=== PATIENT | female | born 1970 | race African-American/Black ===

== ENCOUNTER 2016-12-31 15:14 | Inpatient (IN) | payer MEDICARE, OTHER ==
[~2016-12-31] VITALS: Ht 167.6 cm; Wt 63.5 kg
[~2016-12-31 15:14] MED LIST: ABILIFY30 MG ORAL; ALDACTONE50 MG ORAL; ASPIRIN BUFFER325 MG ORAL; ATIVAN1 MG ORAL; ATIVAN2 MG ORAL; ATORVASTATIN CA40 MG ORAL; AZITHROMYCIN250 MG ORAL; COREG3.125 MG ORAL; CYCLOBENZAPRINE10 MG ORAL; DEPAKOTE500 MG ORAL; DIGOXIN125 MCG ORAL; ENOXAPARIN60 MG/0.6 SUBQ; HYDROCODON-ACE1 EA15 ORAL; LASIX40 MG ORAL; LEVAQUIN500 MG ORAL; LEXAPRO10 MG ORAL; LISINOPRIL10 MG ORAL; LOVENOX10 M3 SUBQ; LYRICA50 MG ORAL; NITROSTAT0.4 M1 SL; NORCO 10/3251 EA ORAL; ROBITUSSIN-DM118 M1 PO; SYMBICORT 16010.2 G1 IH; TEMAZEPAM15 MG ORAL; VICODIN 5-5001 EACH PO; WARFARIN SODIUM1 MG PO; XARELTO10 MG ORAL; ZOFRAN4 MG ORAL; [UNRECOGNIZED DRUG - REMARK] PO; [UNRECOGNIZED DRUG - REMARK] PO
[2016-12-31] MEDS ORDERED: Naloxone 1mg/ml 2ml IVP ONE ×2 (15:45→18:15)
[2016-12-31] MEDS ORDERED: Naloxone 1mg/ml 2ml ONE (15:45)
[2016-12-31 16:30] VITALS: BP 122/100
--- NOTE | 2016-12-31 16:32 | Diagnostic Imaging Report ---
Indications: Chest pain Technique: Portable AP chest Findings: Comparison: 07/02/16 Cardiac silhouette has apparently increased in size. Pulmonary vascular redistribution has developed. No pulmonary infiltrate identified. No pleural abnormalities. Left chest wall pacemaker again noted. IMPRESSION: Findings described suspicious for developing/early congestive heart failure without obvious pulmonary edema
[2016-12-31 16:47] LABS: BASOPHILS % (AUTO) 1.6 % (0.0-2.0); EOSINOPHILS % (AUTO) 1.4 % (0.0-3.0); LYMPHOCYTES % (AUTO) 37.7 % (20.0-45.0); MEAN CORPUSCULAR HEMOGLOBIN 29.7 PG (27.0-31.0); MEAN CORPUSCULAR HGB CONC 33.2 G/DL (32.0-36.0); MEAN CORPUSCULAR VOLUME 89 FL (80-99); MEAN PLATELET VOLUME 8.3 FL (6.5-10.1); MONOCYTES % (AUTO) 7.6 % (1.0-10.0); NEUTROPHILS % (AUTO) 51.7 % (45.0-75.0); PLATELET COUNT 176 K/UL (150-450); RED BLOOD COUNT 4.01 M/UL (4.20-5.40); RED CELL DISTRIBUTION WIDTH 13.4 % (11.6-14.8)
[2016-12-31 17:08] LABS: TROPONIN I < 0.30 ng/mL (<=0.30)
[2016-12-31 17:19] LABS: ALANINE AMINOTRANSFERASE 23 U/L (3-33); ALBUMIN/GLOBULIN RATIO 1.3 (1.0-2.7); ANION GAP 12 (5-15); ASPARTATE AMINO TRANSFERASE 24 U/L (5-40); CARBON DIOXIDE 26 mEQ/L (20-30); CHLORIDE 104 mEQ/L (98-107); CREATININE 0.8 mg/dL (0.5-0.9); GLOMERULAR FILTRATION RATE > 60 mL/min (>60); HEMOLYSIS 39; POTASSIUM 3.7 mEQ/L (3.4-4.9); SODIUM 142 mEQ/L (135-145); TOTAL PROTEIN 6.2 g/dL (6.6-8.7)
[2016-12-31 17:25] LABS: ACETAMINOPHEN < 10 ug/mL (10-30); CKMB < 1.5 ng/mL (< 3.8)
--- NOTE | 2016-12-31 17:44 | Emergency Room Report ---
History of Present Illness General Chief Complaint: Chest Pain Source: Patient, EMS Present Illness HPI Patient is brought in by EMS. When I went to evaluate this patient, by the time I arrived the patient was sleeping and would only slightly withdrawal from painful stimuli. Per report, the patient had complained of chest pain. According to EMS, she had developed chest pain and patient's daughter called 911. En route she was given nitroglycerin with improvement in her chest pain. Per report, initially this patient was alert and able to give a history. However, shortly thereafter she became very sleepy and difficult to arouse. Later, the boyfriend came in states that the patient took some small little white pills for pain. He believes it was Lortab. There is no other history of present illness available. Allergies: Coded Allergies: AMOXICILLIN (Verified Allergy, Mild, SWELLING, 04/11/10) EGG (Verified Allergy, Mild, RASH, 06/08/10) PENICILLINS (Verified Allergy, Mild, RASH, 04/11/10) Patient History Past Medical History: see triage record, NH, CAD, CHF, other - Drug abuse and dependence Past Surgical History: pacemaker Last Menstrual Period: N/a Now: No Reviewed Nursing Documentation: PMH: Agreed, PSxH: Agreed Nursing Documentation-PMH Hx Cardiac Problems: Yes - AICD 2015, drug abuse Hx Hypertension: Yes Hx Pacemaker: Yes - 2015 Hx Asthma: No Hx COPD: Yes Hx Diabetes: No Hx Cancer: No Hx Gastrointestinal Problems: No Hx Dialysis: No Hx Neurological Problems: No Hx Cerebrovascular Accident: Yes - 2011 Hx Transient Ischemic Attacks: No Hx Dementia: No Hx Alzheimer's Disease: No Hx Parkinson's Disease: No Hx Meningitis: No Hx Encephalitis: No Hx Seizures: No Hx Epilepsy: No Hx Multiple Sclerosis: No Hx Cerebral Palsy: No Hx Amyotrophic Lat Sclerosis: No Hx Guillian-[place] Syndrome: No Hx Paralysis: No Hx Peripheral Neuropathy: No Hx Spinal Cord Injury: No Hx Head Trauma: No Hx Traumatic Brain Injury: No Hx Memory Loss: No Hx Concentration Difficulty: No Hx Speech Problem: No Hx Tremors: No Hx Vertigo: No Hx Dizziness: No Hx Syncope: No Hx Headaches: No Hx Aphasia: No Hx Dysphasia: No Hx Numbness: No Hx Weakness: No Hx Fatigue: No Hx Neurologic Surgery: No Hx Brain Shunt: No Review of Systems All Other Systems: limited Physical Exam Vital Signs Date Time Temp Pulse Resp B/P Pulse Ox O2 Delivery O2 Flow Rate FiO2 12/31/16 15:13 99.3 64 16 125/83 97 Room Air 12/31/16 15:42 2.0 Sp02 EP Interpretation: reviewed, normal General Appearance: no apparent distress, non-toxic, Stupor Head: normocephalic, atraumatic Eyes: bilateral eye normal inspection, bilateral eye other - Pinpoint pupils ENT: normal pharynx, no angioedema Neck: full range of motion, supple/symm/no masses Respiratory: chest non-tender, lungs clear, normal breath sounds, speaking full sentences Cardiovascular #1: regular rate, rhythm, no edema Gastrointestinal: normal bowel sounds, non tender, soft, non-distended, no guarding, no rebound Rectal: deferred Musculoskeletal: back normal, normal range of motion Neurologic: sensory intact, other - Sleeping, slightly withdrawals from pain. Skin: normal color, no rash, warm/dry, well hydrated Medical Decision Making Diagnostic Impression: Primary Impression: Chest pain Additional Impression: Medication overdose ER Course Initially, this patient only withdrew slightly from pain. She was given Narcan IV. There was an immediate response, however, the patient became alert and teary. The patient reports that she was having chest pain and leg pain and took some of her Lyrica to "go to sleep." She adamantly denies any other medications to include narcotics. She began asking for pain medications. She remained alert during her ED course. Patient denied suicidal intention, but did admit to taking a handful of Lyrica because she is in pain and depressed. Poison control was contacted and this only require supportive care. Patient's cardiac workup is initially negative. However, the patient is high-risk for acute coronary syndrome. She will be admitted for chest pain and rule out acute coronary syndrome. She will also need an evaluation by psychiatry. She is admitted to telemetry for further evaluation and treatment. Labs Test 12/31/16 15:40 White Blood Count 6.0 K/UL (4.8-10.8) Red Blood Count 4.01 M/UL (4.20-5.40) Hemoglobin 11.9 G/DL (12.0-16.0) Hematocrit 35.9 % (37.0-47.0) Mean Corpuscular Volume 89 FL (80-99) Mean Corpuscular Hemoglobin 29.7 PG (27.0-31.0) Mean Corpuscular Hemoglobin Concent 33.2 G/DL (32.0-36.0) Red Cell Distribution Width 13.4 % (11.6-14.8) Platelet Count 176 K/UL (150-450) Mean Platelet Volume 8.3 FL (6.5-10.1) Neutrophils (%) (Auto) 51.7 % (45.0-75.0) Lymphocytes (%) (Auto) 37.7 % (20.0-45.0) Monocytes (%) (Auto) 7.6 % (1.0-10.0) Eosinophils (%) (Auto) 1.4 % (0.0-3.0) Basophils (%) (Auto) 1.6 % (0.0-2.0) Sodium Level 142 mEQ/L (135-145) Potassium Level 3.7 mEQ/L (3.4-4.9) Chloride Level 104 mEQ/L (98-107) Carbon Dioxide Level 26 mEQ/L (20-30) Anion Gap 12 (5-15) Blood Urea Nitrogen 9 mg/dL (7-23) Creatinine 0.8 mg/dL (0.5-0.9) Estimat Glomerular Filtration Rate > 60 mL/min (>60) Glucose Level 89 mg/dL (74-106) Calcium Level 9.0 mg/dL (8.6-10.2) Total Bilirubin 0.8 mg/dL (0.0-1.2) Aspartate Amino Transf (AST/SGOT) 24 U/L (5-40) Alanine Aminotransferase (ALT/SGPT) 23 U/L (3-33) Alkaline Phosphatase 87 U/L (35-104) Total Creatine Kinase 130 U/L (26-140) Creatine Kinase MB < 1.5 ng/mL (< 3.8) Creatine Kinase MB Relative Index Troponin I < 0.30 ng/mL (<=0.30) Total Protein 6.2 g/dL (6.6-8.7) Albumin 3.6 g/dL (3.5-5.2) Globulin 2.6 g/dL Albumin/Globulin Ratio 1.3 (1.0-2.7) Salicylates Level < 10 mg/dL (10-30) Acetaminophen Level < 10 ug/mL (10-30) Serum Alcohol < 10 mg/dL EKG Diagnostic Results Rate: normal Rhythm: other ST Segments: no acute changes Other Impression AV paced Rhythm Strip Diag. Results EP Interpretation: yes Rate: 60 Rhythm: no PVC's, no ectopy Other Impression Paced Chest X-Ray Diagnostic Results EP Interpretation: Yes Findings: no consolidation, no effusion, no pneumothorax Number of Views: 1 Other Impression Cardiomegaly. Last Vital Signs Date Time Temp Pulse Resp B/P Pulse Ox O2 Delivery O2 Flow Rate FiO2 12/31/16 15:42 98 Nasal Cannula 2.0 12/31/16 15:30 12 12/31/16 15:13 99.3 64 125/83 Disposition: ADMITTED INPATIENT Condition: Serious Referrals: NOT CHOSEN JUAN/,REFERRING (PCP) TRACY BYRNE D.O. December 31, 2016 17:44
[2016-12-31] MEDS ORDERED: Ammonia Inhalant 0.33mL 1 Amp INH ONE (18:08)
[2016-12-31 18:30] VITALS: BP 106/67
[2016-12-31] MEDS ORDERED: Enalaprilat 2.5mg/2ml Inj IV PRN (18:30)
[2016-12-31] MEDS ORDERED: Diltiazem 25mg/5ml IV PRN (18:30)
[2016-12-31] MEDS ORDERED: Ketorolac 30mg Inj IV PRN (18:30)
[2016-12-31] MEDS ORDERED: Nitroglycerin Subl 0.4mg tab (Bottle Of 25) SL PRN (18:30)
[2016-12-31] MEDS ORDERED: Cyclobenzaprine 10mg Tab ORAL PRN (18:30)
[2016-12-31] MEDS ORDERED: Miralax 17gm pkt ORAL PRN (18:30)
[2016-12-31] MEDS ORDERED: DuoNeb 0.5-3(2.5)mg/3ml neb HHN PRN (18:30)
[2016-12-31] MEDS ORDERED: Norco 5mg/325mg tab ORAL PRN (18:30)
[2016-12-31 19:30] VITALS: BP 114/75
[2016-12-31 19:31] VITALS: BP 106/67
[2016-12-31 20:00] VITALS: BP 132/84
[2016-12-31] MEDS ORDERED: Xarelto 10mg tab ORAL SCH (20:00)
[2016-12-31] MEDS ORDERED: Depakote ER 500mg tab ORAL SCH (21:00)
[2017-01-01] VITALS: BP 102/65
[2017-01-01 04:00] VITALS: BP 108/81
[2017-01-01 08:00] VITALS: BP 113/72
[2017-01-01 08:13] LABS: MEAN CORPUSCULAR HEMOGLOBIN 28.2 PG (27.0-31.0); MEAN CORPUSCULAR HGB CONC 31.9 G/DL (32.0-36.0); MEAN CORPUSCULAR VOLUME 88 FL (80-99); PLATELET COUNT 202 K/UL (150-450); RED BLOOD COUNT 4.36 M/UL (4.20-5.40); RED CELL DISTRIBUTION WIDTH 13.7 % (11.6-14.8); WHITE BLOOD COUNT 5.1 K/UL (4.8-10.8)
[2017-01-01 08:29] LABS: INR 1.2 (0.9-1.1); PROTHROMBIN TIME 12.7 SEC (9.30-11.50)
[2017-01-01 08:56] LABS: TROPONIN I < 0.30 ng/mL (<=0.30)
[2017-01-01] MEDS ORDERED: Lyrica 50mg cap ORAL SCH (09:00)
[2017-01-01] MEDS ORDERED: Spironolactone 25mg tab ORAL SCH (09:00)
[2017-01-01] MEDS ORDERED: Lisinopril 2.5mg tab ORAL SCH (09:00)
[2017-01-01] MEDS ORDERED: Aspirin Baby 81mg ORAL SCH (09:00)
[2017-01-01 09:02] LABS: CHOLESTEROL 138 mg/dL (< 200); CHOLESTEROL/HDL RATIO 2.6 (3.3-4.4); CRP QUANT < 0.3 mg/dL (< 0.5); HEMOLYSIS 6; LDL CHOLESTEROL (CALC.) 75 mg/dL (60-99)
[2017-01-01 09:04] LABS: THYROID STIMULATING HORMONE 0.258 uIU/mL (0.300-4.500)
[2017-01-01 09:20] LABS: ANION GAP 14 (5-15); CARBON DIOXIDE 26 mEQ/L (20-30); CHLORIDE 105 mEQ/L (98-107); CREATININE 0.9 mg/dL (0.5-0.9); GLOMERULAR FILTRATION RATE > 60 mL/min (>60); HEMOLYSIS 5; POTASSIUM 4.1 mEQ/L (3.4-4.9); SODIUM 145 mEQ/L (135-145)
[2017-01-01 10:10] LABS: BASOPHILS % (MANUAL) 1 % (0-2); EOSINOPHILS % (MANUAL) 3 % (0-3); LYMPHOCYTES % (MANUAL) 57 % (20-45); NEUTROPHILS % (MANUAL) 33 % (45-75); TOTAL CELLS COUNTED 100
[2017-01-01 10:11] LABS: BAND NEUTROPHILS % (MANUAL) 0 % (0-8); PLATELET ESTIMATE ADEQUATE; PLATELET MORPHOLOGY NORMAL
[2017-01-01 12:00] VITALS: BP 100/57
--- NOTE | 2017-01-01 22:30 | Consultation ---
History of Present Illness General Date patient seen: January 01, 2017 Chief Complaint: Chest Pain Referring physician: Dr. Morrison Reason for Consultation: chest pain Present Illness Allergies: Coded Allergies: AMOXICILLIN (Verified Allergy, Mild, SWELLING, 04/11/10) EGG (Verified Allergy, Mild, RASH, 06/08/10) PENICILLINS (Verified Allergy, Mild, RASH, 04/11/10) Medication History Scheduled Aripiprazole* (Abilify*), 30 MG ORAL QHS, (Reported) Carvedilol (Coreg), 3.125 MG ORAL Q12H, (Reported) Digoxin* (Digoxin*), 250 MCG ORAL DAILY, (Reported) Divalproex Sodium (Depakote), 1,000 MG ORAL BEDTIME, (Reported) Escitalopram Oxalate* (Lexapro*), 10 MG ORAL DAILY, (Reported) Hydrocodone/Acetaminophen (Hydrocodon-Acetaminophn 10-325), 1 TAB ORAL Q6H Lisinopril* (Lisinopril*), 5 MG ORAL DAILY, (Reported) Lorazepam* (Ativan*), 1 MG ORAL BEDTIME, (Reported) Pregabalin (Lyrica), 100 MG ORAL DAILY, (Reported) Rivaroxaban (Xarelto*), 20 MG ORAL DAILY, (Reported) Spironolactone (Aldactone), 25 MG ORAL DAILY Scheduled PRN Cyclobenzaprine Hcl* (Flexeril*), 10 MG ORAL TIDPRN PRN for Muscle Spasm Hydrocodone/Acetaminophen 5-325* (Hydrocodone/Acetaminophen 5-325*), 1 TAB ORAL Q6H PRN for For Pain Nitroglycerin (Nitrostat), 0.4 MG SL Q5M X3 DOSES PRN for Per rx protocol, ( Reported) Temazepam (Temazepam*), 15 MG ORAL BEDTIME PRN for Per rx protocol, (Reported) Miscellaneous Medications Budesonide/Formoterol Fumarate (Symbicort 160-4.5 Mcg Inhaler), 1 PUFF IH, ( Reported) Patient History Healthcare decision maker Resuscitation status Full Code Advanced Directive on File Physical Exam Last 24 Hour Vital Signs Date Time Temp Pulse Resp B/P Pulse Ox O2 Delivery O2 Flow Rate FiO2 01/01/17 12:00 74 01/01/17 12:00 67 18 100/57 97 Room Air 01/01/17 08:41 113/72 01/01/17 08:41 64 01/01/17 08:40 64 113/72 01/01/17 08:00 64 01/01/17 08:00 57 18 113/72 100 Room Air 01/01/17 04:00 97.0 64 18 108/81 98 Nasal Cannula 2.0 01/01/17 04:00 71 01/01/17 00:00 67 01/01/17 00:00 97.7 65 16 102/65 99 Nasal Cannula 2.0 Intake and Output 12/31/16 01/01/17 19:00 07:00 Intake Total 600 ml Output Total 0 ml Balance 600 ml Intake Oral 600 ml Output Urine Total 0 ml # Voids 1 Laboratory Tests Test 01/01/17 00:36 01/01/17 07:10 Urine HCG, Qualitative Negative Urine Opiates Screen Negative (NEGATIVE) Urine Barbiturates Screen Negative (NEGATIVE) Phencyclidine (PCP) Screen Negative (NEGATIVE) Urine Amphetamines Screen Negative (NEGATIVE) Urine Benzodiazepines Screen Negative (NEGATIVE) Urine Cocaine Screen Positive (NEGATIVE) H Urine Marijuana (THC) Screen Positive (NEGATIVE) H White Blood Count 5.1 K/UL (4.8-10.8) Red Blood Count 4.36 M/UL (4.20-5.40) Hemoglobin 12.3 G/DL (12.0-16.0) Hematocrit 38.6 % (37.0-47.0) Mean Corpuscular Volume 88 FL (80-99) Mean Corpuscular Hemoglobin 28.2 PG (27.0-31.0) Mean Corpuscular Hemoglobin Concent 31.9 G/DL (32.0-36.0) L Red Cell Distribution Width 13.7 % (11.6-14.8) Platelet Count 202 K/UL (150-450) Mean Platelet Volume 9.0 FL (6.5-10.1) Neutrophils (%) (Auto) % (45.0-75.0) Lymphocytes (%) (Auto) % (20.0-45.0) Monocytes (%) (Auto) % (1.0-10.0) Eosinophils (%) (Auto) % (0.0-3.0) Basophils (%) (Auto) % (0.0-2.0) Differential Total Cells Counted 100 Neutrophils % (Manual) 33 % (45-75) L Lymphocytes % (Manual) 57 % (20-45) H Monocytes % (Manual) 6 % (1-10) Eosinophils % (Manual) 3 % (0-3) Basophils % (Manual) 1 % (0-2) Band Neutrophils 0 % (0-8) Platelet Estimate Adequate Platelet Morphology Normal Red Blood Cell Morphology Normal Prothrombin Time 12.7 SEC (9.30-11.50) H Prothromb Time International Ratio 1.2 (0.9-1.1) H Activated Partial Thromboplast Time 30 SEC (23-33) Sodium Level 145 mEQ/L (135-145) Potassium Level 4.1 mEQ/L (3.4-4.9) Chloride Level 105 mEQ/L (98-107) Carbon Dioxide Level 26 mEQ/L (20-30) Anion Gap 14 (5-15) Blood Urea Nitrogen 10 mg/dL (7-23) Creatinine 0.9 mg/dL (0.5-0.9) Estimat Glomerular Filtration Rate > 60 mL/min (>60) Glucose Level 88 mg/dL (74-106) Calcium Level 9.0 mg/dL (8.6-10.2) Troponin I < 0.30 ng/mL (<=0.30) C-Reactive Protein, Quantitative < 0.3 mg/dL (< 0.5) Triglycerides Level 48 mg/dL (< 150) Cholesterol Level 138 mg/dL (< 200) LDL Cholesterol 75 mg/dL (60-99) HDL Cholesterol 53 mg/dL (> 60) Cholesterol/HDL Ratio 2.6 (3.3-4.4) L Thyroid Stimulating Hormone (TSH) 0.258 uIU/mL (0.300-4.500) Height (Feet): 5 Height (Inches): 6.00 Weight (Pounds): 140 Assessment/Plan Problem List: (1) ACS (acute coronary syndrome) ICD Codes: I20.0 - Unstable angina SNOMED: 765210694 (2) AICD (automatic cardioverter/defibrillator) present ICD Codes: Z95.810 - Presence of automatic (implantable) cardiac defibrillator SNOMED: 63919248, 813803100 (3) Cardiomyopathy ICD Codes: I42.9 - Cardiomyopathy SNOMED: 33756699 (4) Bipolar depression ICD Codes: F31.30 - Bipolar depression SNOMED: 70590092 CHRISTIANA TERESA January 01, 2017 22:30
--- NOTE | 2017-01-01 23:09 | History and Physical Report ---
DATE OF ADMISSION: 12/31/2016 CHIEF COMPLAINT: The patient is a 46-year-old female who presents with a chief complaint of chest pain and overdose of Lyrica. HISTORY OF PRESENT ILLNESS: The patient has a history of cardiomyopathy and atrial fibrillation. The patient is status post AICD placement. The patient states she took an unknown number of Lyrica tablets yesterday, 12/30/2016. The patient states she took Lyrica for muscle spasms. The patient was transported to [facility]. The patient was admitted for chest pain to rule out acute coronary syndrome. REVIEW OF SYSTEMS: Constitutional: The patient denies weight loss or weight gain. The patient denies fevers or chills. HEENT: The patient denies ear or throat pain. Cardiovascular: The patient complains of chest pain. The patient denies palpitations. The patient denies wheeze or shortness of breath. Abdomen: The patient denies nausea, vomiting, diarrhea, or constipation. Genitourinary: The patient denies dysuria or increased frequency of urination. Neuromuscular: The patient denies seizures or generalized weakness. PAST MEDICAL HISTORY: Significant for: 1. Congestive heart failure. 2. Atrial fibrillation. 3. Cardiomyopathy. 4. Bipolar depression. 5. Hypothyroidism. 6. Hypertension. 7. Anxiety. 8. Major depression. PAST SURGICAL HISTORY: Significant for AICD placement x3, last placement was in November [address] Ojeda. CURRENT MEDICATIONS: The patient states she ran out of her medications five months ago. It is unknown where the patient got the Lyrica from. ALLERGIES: Penicillin. SOCIAL HISTORY: The patient is single, however lives with her adult daughter. The patient has a history of tobacco use of one-quarter pack per day. The patient admits to occasional alcohol use. The patient is disabled the patient denies other drugs of abuse. PHYSICAL EXAMINATION: VITAL SIGNS: Temperature 97, respirations 18, pulse 64 to 71, blood pressure 108/81. GENERAL: The patient is a thin-appearing female who is agitated. HEENT: Pupils are equal and responsive to light and accommodation. Extraocular muscles are intact. NECK: Supple without lymphadenopathy. CHEST: Lungs are clear to auscultation bilaterally without wheezes or rales. CARDIOVASCULAR: Regular rate. S1 and S2 are normal without murmurs, rubs, or gallops. ABDOMEN: Soft, nontender, and nondistended. Positive bowel sounds. No evidence of hepatosplenomegaly. Currently no rebound or guarding. EXTREMITIES: Negative for clubbing, cyanosis, or edema. RECTAL/GENITAL: Refused. NEUROLOGIC: Cranial nerves II through XII are grossly intact without focal deficits. Motor strength is 5/5 bilaterally. Deep tendon reflexes are 2+ . LABORATORY STUDIES: WBC 6, hemoglobin 11.9, hematocrit 35.9, and platelets 176,000. Sodium 143, potassium 3.7, chloride 104, CO2 26, BUN 9, creatinine 0.8, and glucose 89. Troponin is less than 0.3. TSH is 0.26. EKG demonstrates ventricular paced rhythm with occasional PVCs at approximately 60 beats per minute. ASSESSMENT: This is a 46-year-old female with: 1. Chest pain. 2. Atrial fibrillation. 3. Congestive heart failure. 4. Cardiomyopathy. 5. Bipolar depression. 6. Hypothyroidism. 7. Hypertension. 8. Anxiety. 9. Depression. TREATMENT: 1. Chest pain/congestive heart failure/atrial fibrillation/cardiomyopathy. Cardiology consultation with Dr. Ulysses Ojeda. Chest pain may be secondary to acute myocardial syndrome. We will follow recommendations of Cardiology. An echocardiogram is pending. Serial troponin levels will be run. 2. Bipolar depression. 3. Hypothyroidism. The patient is currently hyperthyroid. A thyroid panel is pending. 4. Hypertension. The patient is currently normotensive off medications. 5. Anxiety. 6. Depression. 7. AICD in situ. Aron Pope M.D. DR: YASMEEN JOB#: [id number] CC:
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
--- NOTE | 2017-01-02 19:29 | Cardiology Report ---
APPROVED REPORT EXAM: Two-dimensional and M-mode echocardiogram with Doppler and color Doppler. INDICATION Left ventricular function M-Mode DIMENSIONS IVSd1.0 (0.7-1.1cm)Left Atrium (MM)3.7 (1.6-4.0cm) LVDd6.3 (3.5-5.6cm)Aortic Root3.3 (2.0-3.7cm) PWd1.0 (0.7-1.1cm)Aortic Cusp Exc.2.1 (1.5-2.0cm) LVDs5.2 (2.5-4.0cm) PWs1.3 cm Mild left ventricular enlargement. Global left ventricular hypokinesis. Left ventricular ejection fraction estimated to be 20-25%. No evidence of left ventricular hypertrophy. No evidence of pericardial fat or effusion. Right cardiac chamber sizes are within normal limits. Mild left atrial enlargement by 2D. Focal aortic valve sclerosis with adequate cusp excursion Thickened mitral valve leaflets with normal excursion. Mitral annulus and aortic root calcification. Pulmonic valve not well visualized. Normal tricuspid valve structure. IVC is normal in size with minimal physiological collapse. Probable pacemaker wire present in the right side chambers. RA pressure of 10mmHg. Echo density in the apical region, cannot rule out apical thrombus. A color flow and spectral Doppler study was performed and revealed: No aortic regurgitation. Trace mitral regurgitation. Left ventricular diastolic dysfunction grade 1. Trace tricuspid regurgitation. Tricuspid systolic velocities suggests peak right ventricular systolic pressure of 15 mmHg Pulmonic regurgitation present.
--- NOTE | 2017-01-03 14:08 | Discharge Summary ---
Discharge Summary Hospital Course Date of Admission December 31, 2016 at 16:15 Date of Discharge January 01, 2017 at 16:09 Admitting Diagnosis CHEST PAIN, benzodiazepine OD. MARTA Judd is a 46 year old female who was admitted on December 31, 2016 at 16: 15 for Chest Pain,Benzo Overdose Hospital Course dc summary #[id number] Discharge Condition Upon Discharge: stable Discharge Disposition Patient signed AMA Discharge Diagnoses: Discharge Instructions Discharge Instructions Special Instructions I have been assigned to complete a D/C Summary on this account. I was not involved in the patient management Saray Schulte NP ([place]te[place]) January 03, 2017 14:08
--- NOTE | 2017-01-04 06:30 | Discharge Summary 2 SIG ---
DATE OF ADMISSION: 12/31/2016 DATE OF DISCHARGE: 01/01/2017 Date of signing against medical advice is 01/01/2017. The patient is admitted under Dr. Morrison. REASON FOR ADMISSION: The patient is a 46-year-old female, presented to emergency room with complaint of chest pain. Initially, the patient complained of chest pain and her daughter called paramedics. In route, the patient was given nitroglycerin with improvement in chest pain. At that time, the patient was alert and able to give information. Shortly thereafter, she became very sleepy and difficult to arouse. An emergency department doctor was unable to wake up the patient. She was only slightly withdrawing from painful stimuli. Narcan was given. The boyfriend stated that the patient might have taken some little white pill for pain, he believes it was . The patient is with multiple chronic medical problems including hypertension, automatic implanted cardioverter defibrillator, and cardiomyopathy. The patient immediately responded to Narcan and became alert and teary. She reported she had a chest pain and leg pain and took a bunch of Lyrica to go to sleep. She adamantly denied any other medication to include narcotic. She started to ask for pain medication. She remained alert during the ED course. The patient denies suicidal ideation. Poison Control was contracted for overdose on Lyrica and that only required supportive care. The patient's initial cardiac workup was negative. Troponin was negative. Chest x-ray was negative. EKG revealed AV paced rhythm in 60s. No ectopy. No premature ventricular contraction. The patient was at high risk for acute coronary syndrome and admitted for further management. The patient also needs evaluation by psychiatrist. The patient was admitted to telemetry floor. ADMITTING DIAGNOSES: Includes, 1. Chest pain, rule out acute coronary syndrome. 2. Medication overdose. 3. Cardiomyopathy. 4. Automatic implanted cardioverter defibrillator. HOSPITAL COURSE: The patient was admitted. Troponin x2 were negative. Echocardiogram revealed ejection fraction of 20% to 25% and right ventricular systolic pressure of 15 with a global left ventricular hypokinesis. The patient was continued on home medication treatment with beta-thais, CHELSEA inhibitor, digoxin, and Aldactone. Chest x-ray revealed early congestive heart failure, but no pulmonary edema. EKG shows AV paced rhythm at 60. The patient has a history of atrial fibrillation and PE. The patient was on anticoagulation with Xarelto. Lipid panel checked and was stable. Noted low TSH. It is unclear if the patient has any history of hyper or hypothyroidism since none of her home medication have that. Full thyroid panel was ordered. Urine tox screen was positive for marijuana and cocaine. The patient was counseled on abstinence from cocaine. Later on 01/01/2017, the patient decided to sign against medical advice. The risks and consequences about signing against medical advice were discussed with the patient by the nursing staff. 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 Psychiatrist seen the patient and diagnosed her with major depressive disorder and optimized her medication regimen. The patient signed the form and left against medical advice. FINAL DIAGNOSES: Includes, 1. Chest pain, acute coronary syndrome was likely ruled out. 2. Medication overdose. 3. Cocaine abuse. 4. Automatic implanted cardioverter defibrillator. 5. Cardiomyopathy. 6. Hypertension. 7. Low thyroid stimulating hormone. 8. Major depressive disorder. Saurav Morrison M.D. I have been assigned to dictate discharge summary on this account and I was not involved in the patient's management. Saray Turnereastern niagara hospital, [place] divisionDanita N.PHaleigh DR: EKATERINA JOB#: [id number] CC:
== END 2017-01-01 16:09 | disposition left against medical advice (07) | DRG 313 ==
LOC: EDBD 15:14 → EDSEX 15:14 → EMR 15:45 → EDBEDREQ 16:07 → EDBEDREQSVC 16:07 → 2E 16:15 → EDBEDREQ 16:34 → 2E 01-01 12:51
DX: R07.9 Chest pain, unspecified (principal); I42.9 Cardiomyopathy, unspecified; T42.6X1A Poisoning by other antiepileptic and sedative-hypnotic drugs, accidental (unintentional), initial encounter; Y92.019 Unspecified place in single-family (private) house as the place of occurrence of the external cause; M79.606 Pain in leg, unspecified; Z91.19 Patient's noncompliance with other medical treatment and regimen; F32.9 Major depressive disorder, single episode, unspecified; Z95.810 Presence of automatic (implantable) cardiac defibrillator; I10 Essential (primary) hypertension; Z86.711 Personal history of pulmonary embolism; Z79.01 Long term (current) use of anticoagulants; F14.10 Cocaine abuse, uncomplicated; F12.10 Cannabis abuse, uncomplicated
CPT/HCPCS: 36415; 71010; 80048; 80053; 80061; 80300; 80329; 81025; 82550; 82553; 84443; 84484; 85007; 85025; 85610; 85730; 86140; 93005; 93306; J2310

== ENCOUNTER 2017-01-13 12:09 | Inpatient (IN) | payer MEDICARE, OTHER ==
[~2017-01-13] VITALS: Ht 170.2 cm; Wt 62.6 kg
[2017-01-13] MEDS: Albuterol ud Inhalation HHN SCH ×2 (12:45→12:46)
[2017-01-13] MEDS: Ipratropium 0.02% Inh Soln 2.5ml UD HHN SCH ×2 (12:45→12:46)
[2017-01-13 13:02] LABS: BASOPHILS % (AUTO) 1.4 % (0.0-2.0); EOSINOPHILS % (AUTO) 1.8 % (0.0-3.0); LYMPHOCYTES % (AUTO) 34.7 % (20.0-45.0); MEAN CORPUSCULAR HEMOGLOBIN 27.5 PG (27.0-31.0); MEAN CORPUSCULAR HGB CONC 31.3 G/DL (32.0-36.0); MEAN CORPUSCULAR VOLUME 88 FL (80-99); MEAN PLATELET VOLUME 9.9 FL (6.5-10.1); MONOCYTES % (AUTO) 5.2 % (1.0-10.0); NEUTROPHILS % (AUTO) 56.8 % (45.0-75.0); PLATELET COUNT 195 K/UL (150-450); RED BLOOD COUNT 4.78 M/UL (4.20-5.40); RED CELL DISTRIBUTION WIDTH 13.2 % (11.6-14.8); WHITE BLOOD COUNT 7.9 K/UL (4.8-10.8)
[2017-01-13 13:14] LABS: PROTHROMBIN TIME 10.4 SEC (9.30-11.50)
[2017-01-13 13:21] LABS: ALANINE AMINOTRANSFERASE 20 U/L (3-33); ALBUMIN/GLOBULIN RATIO 1.5 (1.0-2.7); ANION GAP 13 (5-15); ASPARTATE AMINO TRANSFERASE 18 U/L (5-40); CALCIUM 9.2 mg/dL (8.6-10.2); CARBON DIOXIDE 25 mEQ/L (20-30); CHLORIDE 102 mEQ/L (98-107); CREATININE 0.8 mg/dL (0.5-0.9); GLOMERULAR FILTRATION RATE > 60 mL/min (>60); HEMOLYSIS 11; POTASSIUM 4.1 mEQ/L (3.4-4.9); SODIUM 140 mEQ/L (135-145); TOTAL PROTEIN 6.3 g/dL (6.6-8.7)
[2017-01-13 13:22] LABS: TROPONIN I < 0.30 ng/mL (<=0.30)
[2017-01-13 13:31] LABS: CKMB < 1.5 ng/mL (< 3.8)
[2017-01-13 13:46] VITALS: BP 114/78
[2017-01-13] MEDS ORDERED: Norco 5mg/325mg tab ORAL ONE (14:15)
--- NOTE | 2017-01-13 14:29 | Emergency Room Report ---
History of Present Illness General Chief Complaint: Chest Pain Source: Patient Present Illness HPI 46-year-old female presents ED complaining of chest pain and shortness of breath since last night. Patient has history of hypertension and CHF. Has pacemaker. Patient describes pain as sharp, midsternal, 10 out of 10, nonradiating. Also notes chest tightness. This history of asthma. States that her bathroom is being refinished and the fumes triggered her asthma symptoms. Denies fevers or chills. Denies cough. Denies nausea or vomiting. No other aggravating or relieving factors. Denies any other associated symptoms Allergies: Coded Allergies: AMOXICILLIN (Verified Allergy, Mild, SWELLING, 04/11/10) EGG (Verified Allergy, Mild, RASH, 06/08/10) PENICILLINS (Verified Allergy, Mild, RASH, 04/11/10) Patient History Past Medical History: HTN, CHF, CVA/TIA Past Surgical History: pacemaker Pertinent Family History: none Social History: Denies: alcohol use, drug use, smoking Now: No Immunizations: UTD Reviewed Nursing Documentation: PMH: Agreed, PSxH: Agreed Nursing Documentation-PMH Hx Cardiac Problems: Yes Hx Hypertension: Yes Hx Pacemaker: Yes - 2015 LEFT Hx Asthma: No Hx COPD: Yes Hx Diabetes: No Hx Cancer: No Hx Gastrointestinal Problems: No Hx Dialysis: No Hx Neurological Problems: No Hx Cerebrovascular Accident: Yes - 2011 Hx Transient Ischemic Attacks: Yes Hx Dementia: No Hx Alzheimer's Disease: No Hx Parkinson's Disease: No Hx Meningitis: No Hx Encephalitis: No Hx Seizures: No Hx Epilepsy: No Hx Multiple Sclerosis: No Hx Cerebral Palsy: No Hx Amyotrophic Lat Sclerosis: No Hx Guillian-Warren Syndrome: No Hx Paralysis: Yes Hx Peripheral Neuropathy: No Hx Spinal Cord Injury: No Hx Head Trauma: No Hx Traumatic Brain Injury: No Hx Memory Loss: No Hx Concentration Difficulty: No Hx Speech Problem: No Hx Tremors: No Hx Vertigo: No Hx Dizziness: No Hx Syncope: No Hx Headaches: Yes - Migraines Hx Aphasia: No Hx Dysphasia: No Hx Numbness: No Hx Weakness: No Hx Fatigue: No Hx Neurologic Surgery: No Hx Brain Shunt: No Review of Systems All Other Systems: negative except mentioned in HPI Physical Exam Vital Signs Date Time Temp Pulse Resp B/P Pulse Ox O2 Delivery O2 Flow Rate FiO2 01/13/17 12:14 97.5 68 20 150/88 100 Room Air 01/13/17 12:46 21 Sp02 EP Interpretation: reviewed, normal General Appearance: no apparent distress, alert, GCS 15, non-toxic Head: normocephalic, atraumatic Eyes: bilateral eye PERRL, bilateral eye normal inspection ENT: hearing grossly normal, normal pharynx, no angioedema, normal voice Neck: full range of motion, supple/symm/no masses Respiratory: chest non-tender, decreased breath sounds, speaking full sentences , wheezing Cardiovascular #1: regular rate, rhythm, no edema Cardiovascular #2: 2+ carotid (R), 2+ carotid (L), 2+ radial (R), 2+ radial (L) , 2+ dorsalis pedis (R), 2+ dorsalis pedis (L) Gastrointestinal: normal bowel sounds, non tender, soft, non-distended, no guarding, no rebound Rectal: deferred Genitourinary: normal inspection, no CVA tenderness Musculoskeletal: back normal, gait/station normal, normal range of motion, non- tender Neurologic: alert, oriented x3, responsive, motor strength/tone normal, sensory intact, speech normal Psychiatric: judgement/insight normal, memory normal, mood/affect normal, no suicidal/homicidal ideation Reflexes: 3+ bicep (R), 3+ bicep (L), 3+ tricep (R), 3+ tricep (L), 3+ knee (R) , 3+ knee (L) Skin: normal color, no rash, warm/dry, well hydrated Lymphatic: no adenopathy Medical Decision Making Diagnostic Impression: Primary Impression: ACS (acute coronary syndrome) Additional Impressions: opiate dependance Congestive heart failure (CHF) Qualified Codes: I50.9 - Heart failure, unspecified Asthma exacerbation ER Course Hospital Course 46-year-old female presents ED complaining of chest pain, shortness of breath Differential diagnoses include: OR/unstable angina, contusion, muscle strain, PTX, rib fracture Clinical course Patient placed on stretcher. on hose handler. After initial history and physical I ordered labs, EKG, chest x-ray, nebulizer treatments labs reviewed- no leukocytosis, hb/hct stable, electrolytes ok, trop negative, BNP 1500 EKG - pacemaker rhythm, PVCs, no ischemic changes Chest x-ray- cardiomegaly. pacemaker Breathing has improved after breathing treatments. However patient continues to have chest pain. Patient has significant history for opioid dependence. However given patient's significant cardiac history I believe she will require admission. Given [place] in ED. given aspirin Case discussed with Dr. Morrison and he agreed to accept the patient to his service for further care and support I. I feel this is a highly complex case requiring extensive working including EKG/Rhythm strip, Xray/CT/US, Blood/urine lab work, repeat exams while in ED, and administration of strong opiates/narcotics for pain control, admission to hospital or close patient follow up. Diagnosis - ACS, opiate dependence, CHF, asthma exacebration admitted to telemetry in serious condition Labs Test 01/13/17 12:35 White Blood Count 7.9 K/UL (4.8-10.8) Red Blood Count 4.78 M/UL (4.20-5.40) Hemoglobin 13.2 G/DL (12.0-16.0) Hematocrit 42.0 % (37.0-47.0) Mean Corpuscular Volume 88 FL (80-99) Mean Corpuscular Hemoglobin 27.5 PG (27.0-31.0) Mean Corpuscular Hemoglobin Concent 31.3 G/DL (32.0-36.0) Red Cell Distribution Width 13.2 % (11.6-14.8) Platelet Count 195 K/UL (150-450) Mean Platelet Volume 9.9 FL (6.5-10.1) Neutrophils (%) (Auto) 56.8 % (45.0-75.0) Lymphocytes (%) (Auto) 34.7 % (20.0-45.0) Monocytes (%) (Auto) 5.2 % (1.0-10.0) Eosinophils (%) (Auto) 1.8 % (0.0-3.0) Basophils (%) (Auto) 1.4 % (0.0-2.0) Prothrombin Time 10.4 SEC (9.30-11.50) Prothromb Time International Ratio 1.0 (0.9-1.1) Activated Partial Thromboplast Time 25 SEC (23-33) Sodium Level 140 mEQ/L (135-145) Potassium Level 4.1 mEQ/L (3.4-4.9) Chloride Level 102 mEQ/L (98-107) Carbon Dioxide Level 25 mEQ/L (20-30) Anion Gap 13 (5-15) Blood Urea Nitrogen 7 mg/dL (7-23) Creatinine 0.8 mg/dL (0.5-0.9) Estimat Glomerular Filtration Rate > 60 mL/min (>60) Glucose Level 98 mg/dL (74-106) Calcium Level 9.2 mg/dL (8.6-10.2) Total Bilirubin 0.9 mg/dL (0.0-1.2) Aspartate Amino Transf (AST/SGOT) 18 U/L (5-40) Alanine Aminotransferase (ALT/SGPT) 20 U/L (3-33) Alkaline Phosphatase 106 U/L (35-104) Total Creatine Kinase 103 U/L (26-140) Creatine Kinase MB < 1.5 ng/mL (< 3.8) Creatine Kinase MB Relative Index Troponin I < 0.30 ng/mL (<=0.30) Pro-B-Type Natriuretic Peptide 1500 pg/mL (0-125) Total Protein 6.3 g/dL (6.6-8.7) Albumin 3.8 g/dL (3.5-5.2) Globulin 2.5 g/dL Albumin/Globulin Ratio 1.5 (1.0-2.7) EKG Diagnostic Results Rate: normal Rhythm: other - paced rhythm ST Segments: no acute changes ASA given to the pt in ED: Yes Rhythm Strip Diag. Results EP Interpretation: yes Rhythm: no ectopy, other - PVCs Chest X-Ray Diagnostic Results EP Interpretation: Yes Findings: no consolidation, no effusion, no pneumothorax, no acute cardiopulmonary disease, other - pacemaker. cardiomegaly Number of Views: 1 Last Vital Signs Date Time Temp Pulse Resp B/P Pulse Ox O2 Delivery O2 Flow Rate FiO2 01/13/17 13:46 97.5 73 20 114/78 100 Room Air 21 Status: improved Disposition: ADMITTED INPATIENT Condition: Serious Referrals: Saurav Morrison MD (PCP) RADHA ZAMORA M.D. January 13, 2017 14:29
[2017-01-13] MEDS ORDERED: Miralax 17gm pkt ORAL PRN (14:45)
[2017-01-13] MEDS ORDERED: DuoNeb 0.5-3(2.5)mg/3ml neb HHN PRN (14:45)
[2017-01-13] MEDS ORDERED: Cyclobenzaprine 10mg Tab ORAL PRN (14:45)
[2017-01-13] MEDS ORDERED: Ketorolac 30mg Inj IV PRN (14:45)
[2017-01-13] MEDS ORDERED: Enalaprilat 2.5mg/2ml Inj IV PRN (14:45)
--- NOTE | 2017-01-13 15:38 | Cardiac Electrophysiology PN ---
Subjective Subjective [id number] Objective Last 24 Hour Vital Signs Date Time Temp Pulse Resp B/P Pulse Ox O2 Delivery O2 Flow Rate FiO2 01/13/17 13:46 97.5 73 20 114/78 100 Room Air 21 01/13/17 13:38 68 20 Room Air 21 01/13/17 12:46 68 20 100 Room Air 21 01/13/17 12:46 68 20 Room Air 21 01/13/17 12:46 21 01/13/17 12:14 97.5 68 20 150/88 100 Room Air Laboratory Tests Test 01/13/17 12:35 White Blood Count 7.9 K/UL (4.8-10.8) Red Blood Count 4.78 M/UL (4.20-5.40) Hemoglobin 13.2 G/DL (12.0-16.0) Hematocrit 42.0 % (37.0-47.0) Mean Corpuscular Volume 88 FL (80-99) Mean Corpuscular Hemoglobin 27.5 PG (27.0-31.0) Mean Corpuscular Hemoglobin Concent 31.3 G/DL (32.0-36.0) L Red Cell Distribution Width 13.2 % (11.6-14.8) Platelet Count 195 K/UL (150-450) Mean Platelet Volume 9.9 FL (6.5-10.1) Neutrophils (%) (Auto) 56.8 % (45.0-75.0) Lymphocytes (%) (Auto) 34.7 % (20.0-45.0) Monocytes (%) (Auto) 5.2 % (1.0-10.0) Eosinophils (%) (Auto) 1.8 % (0.0-3.0) Basophils (%) (Auto) 1.4 % (0.0-2.0) Prothrombin Time 10.4 SEC (9.30-11.50) Prothromb Time International Ratio 1.0 (0.9-1.1) Activated Partial Thromboplast Time 25 SEC (23-33) Sodium Level 140 mEQ/L (135-145) Potassium Level 4.1 mEQ/L (3.4-4.9) Chloride Level 102 mEQ/L (98-107) Carbon Dioxide Level 25 mEQ/L (20-30) Anion Gap 13 (5-15) Blood Urea Nitrogen 7 mg/dL (7-23) Creatinine 0.8 mg/dL (0.5-0.9) Estimat Glomerular Filtration Rate > 60 mL/min (>60) Glucose Level 98 mg/dL (74-106) Calcium Level 9.2 mg/dL (8.6-10.2) Total Bilirubin 0.9 mg/dL (0.0-1.2) Aspartate Amino Transf (AST/SGOT) 18 U/L (5-40) Alanine Aminotransferase (ALT/SGPT) 20 U/L (3-33) Alkaline Phosphatase 106 U/L (35-104) H Total Creatine Kinase 103 U/L (26-140) Creatine Kinase MB < 1.5 ng/mL (< 3.8) Creatine Kinase MB Relative Index Troponin I < 0.30 ng/mL (<=0.30) Pro-B-Type Natriuretic Peptide 1500 pg/mL (0-125) H Total Protein 6.3 g/dL (6.6-8.7) L Albumin 3.8 g/dL (3.5-5.2) Globulin 2.5 g/dL Albumin/Globulin Ratio 1.5 (1.0-2.7) WALDEMAR RAY January 13, 2017 15:38
--- NOTE | 2017-01-13 16:05 | Diagnostic Imaging Report ---
Indications: Chest pain Technique: Portable AP chest Findings: Comparison: 12/31/2016 Cardiac silhouette has decreased in size. Apparent pulmonary vascular redistribution has decreased. Lungs and pleura clear. No new abnormality. IMPRESSION: Decrease in previous mild bilateral congestive/pre-congestive changes No current evidence of acute disease
[2017-01-13] MEDS ORDERED: Nitroglycerin Subl 0.4mg tab (Bottle Of 25) SL PRN (16:30)
[2017-01-13 17:08] VITALS: BP 118/76
[2017-01-13 17:49] VITALS: BP 121/88
[2017-01-13] MEDS ORDERED: Norco 10mg/325mg tab ORAL PRN (18:00)
[2017-01-13] MEDS ORDERED: Diltiazem 25mg/5ml IV PRN (18:00)
[2017-01-13] MEDS: Xarelto 10mg tab ORAL SCH (18:33)
--- NOTE | 2017-01-13 19:19 | History & Physical ---
History and Physical History & Physicial Dictated for Int Med-Dr Morrison no. [id number]. KRISTAL WEI January 13, 2017 19:19
[2017-01-13] MEDS: Morphine Sulfate 2mg/ml Inj IVP PRN (19:59)
[2017-01-13 20:00] VITALS: BP 118/78
[2017-01-13] MEDS ORDERED: Heparin 5000 units/ml inj SUBQ SCH (21:00)
[2017-01-13] MEDS ORDERED: Depakote ER 500mg tab ORAL SCH (21:00)
--- NOTE | 2017-01-13 22:33 | History and Physical Report ---
DATE OF ADMISSION: 01/13/2017 CHIEF COMPLAINT: The patient is a 46-year-old female, who presents with chief complaint of chest pain and shortness of breath. HISTORY OF PRESENT ILLNESS: Began one day prior to admission. The patient was admitted to [facility] from 12/31/2016 to 01/01/2017. The patient was admitted for chest pain at that time. The patient left against medical advice. The patient states that she began to experience chest pain and shortness of breath one day prior to admission. The patient denies productive cough. The patient states that chest pain is substernal. There is no radiation to the jaw or to the shoulder. The patient presented to [facility]. The patient was admitted for chest pain and shortness of breath to rule out congestive heart failure. REVIEW OF SYSTEMS: Constitutional: The patient denies weight loss or weight gain. The patient denies fever or chills. HEENT: The patient denies ear or throat pain. The patient denies headache. Cardiovascular: The patient denies palpitations. The patient complains of chest pain as above. Chest: The patient complains of shortness of breath as above. The patient denies wheezes. Abdomen: The patient denies nausea, vomiting, or constipation. Genitourinary: The patient denies dysuria or increased frequency of urination. Neuromuscular: The patient denies seizures or generalized weakness. PAST MEDICAL HISTORY: Significant for: 1. Congestive heart failure. 2. Atrial fibrillation. 3. Cardiomyopathy. 4. Bipolar depression. 5. Hypothyroidism. 6. Hypertension. 7. Anxiety. 8. Major depression. PAST SURGICAL HISTORY: Significant for AICD placement x3, last placement was in November [address] Ulysses Ojeda. CURRENT MEDICATIONS: 1. Abilify 30 mg one tablet p.o. at bedtime. 2. Symbicort one puff p.o. daily. 3. Carvedilol 3.125 mg one tablet p.o. twice daily. 4. Flexeril 10 mg one tablet p.o. three times daily. 5. Digoxin 0.25 mg daily. 6. Depakote 1000 mg one tablet p.o. at bedtime. 7. Lexapro 10 mg one tablet p.o. daily. 8. Schwertner 5/325 mg one tablet p.o. q.6 h. p.r.n. 9. Lisinopril 10 mg one tablet p.o. daily. 10. Lorazepam 1 mg one tablet p.o. at bedtime. 11. Nitrostat 0.4 mg sublingual. 12. Lyrica 50 mg two tablets p.o. daily. 13. Xarelto 20 mg one tablet p.o. daily. 14. Spironolactone 25 mg one tablet p.o. daily. 15. Temazepam 15 mg one tablet p.o. at bedtime. ALLERGIES: Penicillin. SOCIAL HISTORY: The patient is single and lives with her adult daughter. The patient is disabled. The patient admits to tobacco use of 1/4 pack per day. The patient admits occasional alcohol use. The patient denies other drugs abuse. PHYSICAL EXAMINATION: VITAL SIGNS: Temperature is 97.5 degrees, respirations 20, pulse 72, and blood pressure 114/78. GENERAL: The patient is a well-developed, well-nourished, and thin-appearing female, in no apparent distress. HEENT: Eyes, pupils are equal and responsive to light and accommodation. Extraocular movements are intact. NECK: Supple. No lymphadenopathy. CHEST: Few crackles in bilateral bases, otherwise clear to auscultation without wheezes or rales. CARDIOVASCULAR: Regular rate. S1 and S2. No murmurs, rubs, or gallops. ABDOMEN: Soft, nontender, and nondistended. Positive bowel sounds. No evidence of hepatosplenomegaly. Currently no rebound or guarding noted. EXTREMITIES: Negative for clubbing, cyanosis, or edema. RECTAL/GENITAL: Refused. NEUROLOGIC: Cranial nerves II through XII are grossly intact without focal deficits. Motor strength is 5/5 bilaterally. Deep tendon reflexes are 2+ plantar. LABORATORY STUDIES: WBC is 7.9, hemoglobin 13.2, hematocrit 42.0, and platelets 195,000. Sodium is 140, potassium 4.1, chloride 102, CO2 25, BUN 7, creatinine 0.8, and glucose 98. BNP is elevated at 1500. Troponin is less than 0.3. DIAGNOSTIC DATA: EKG demonstrated ventricular paced rhythm at approximately 65 beats per minute. ASSESSMENT: This is a 46-year-old female, 1. Chest pain. 2. Shortness of breath. 3. Congestive heart failure. 4. Atrial fibrillation. 5. Hypertension. 6. Cardiomyopathy. 7. Bipolar depression. 8. Hypothyroidism. 9. Anxiety disorder. 10. Depression. TREATMENT: 1. Chest pain/shortness of breath/congestive heart failure. Cardiology consultation will be obtained with Dr. Ulysses Ojeda. The patient has been started on intravenous Lasix. An echocardiogram is pending. We will follow recommendation of Cardiology. The patient will be ruled out for acute coronary syndrome with serial troponin levels. 2. Atrial fibrillation. Continue Xarelto and digoxin as above. 3. Hypertension. Continue Aldactone and lisinopril as above. Continue Coreg as above. 4. Cardiomyopathy. 5. Bipolar depression. 6. Hypothyroidism. A TSH is pending. 7. Anxiety/depression. Continue Abilify as above. Aron Pope M.D. DR: Angle JOB#: [id number] CC:
[2017-01-14] VITALS: BP 128/72
[2017-01-14] MEDS: Morphine Sulfate 2mg/ml Inj IVP PRN ×6 (00:09→16:50)
--- NOTE | 2017-01-14 01:03 | Consultation ---
DATE OF CONSULTATION: 01/13/2017 CARDIOLOGY CONSULTATION REFERRING PHYSICIAN: Saurav Morrison M.D. REASON FOR CONSULTATION: Chest pain. HISTORY OF PRESENT ILLNESS: The patient is a 46-year-old, -[place]ian lady, who is quite familiar from multiple previous admissions as well as office visits. The patient presented to the emergency room complaining of chest pain and shortness of breath. The patient said that she has had this for last week. The patient was admitted about 2 weeks ago, but was discharged the next day. The patient has a history of cardiomyopathy with ejection fraction of 20%. She has a history of LV clot and pulmonary embolism and was on Xarelto. 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 The patient also has a history of [employer] defibrillator implantation in year 1999 and subsequent generator change in 2008 and 11/2015 at [facility]. The patient also has a history of atrial lead fracture that underwent a new atrially lead placement in 02/2015. At the time of my evaluation, the patient is in emergency room. Denies any chest pain. Denies any short of breath. PAST MEDICAL HISTORY: As mentioned above. FAMILY HISTORY: Noncontributory. SOCIAL HISTORY: She lives at home. Recently again. Does not smoke or drink alcohol. REVIEW OF SYSTEM: Thoroughly performed and was negative other that what was mentioned in the history of present illness. PHYSICAL EXAMINATION: VITAL SIGNS: Blood pressure is 114/70, pulse 72, respirations 20, and she is afebrile. HEAD AND NECK: Shows no JVD. LUNGS: Coarse rhonchi. CARDIOVASCULAR: Shows regular S1 and S2 with no gallop or murmur. ABDOMEN: Soft. EXTREMITIES: No pitting edema. LABORATORY AND DIAGNOSTIC DATA: Her EKG showed atrial sensed ventricular paced rhythm at a rate of 67. Labs show white count of 7.9, hemoglobin of 13.7, hematocrit of 42, and platelet count is 195,000. Sodium 140, potassium 4.1, BUN 7, creatinine 0.8, and glucose of 90. Troponin is negative. BNP is 1500. ASSESSMENT AND PLAN: 1. Chest pain and shortness of breath due to this admission for congestive heart failure. Her BNP is 1500. The patient is on Lasix 40 mg intravenous daily. Repeat the BNP in the morning. Echocardiogram will also be repeated. 2. Chest pain likely congestive heart failure completely rule out myocardial infarction protocol. 3. Hypertension. Continue the patient's current heart failure medication including Coreg 3.125 mg twice daily, lisinopril 5 mg daily and Aldactone 25 mg daily and Lasix 40 mg intravenous daily. The patient is also on digoxin. 4. and left leg clots and history of pulmonary embolism. Resume Xarelto 10 mg daily. 5. Status post ablation of atrial flutter in 2012 and senses ablation of AV del reentrant tachycardia in 2009. 6. Status post ablation of atrial tachycardia in 11/2014. 7. Status post [employer] defibrillator implantation in 1999 and generator change in 2008 as well as 11/2015. 8. Status post new atrial lead placement in 02/2015 after an atrial lead fracture. Thank you very much, Dr. Morrison, for allowing me to participate in the care of this patient. Please do not hesitate to contact me for any questions regarding my evaluation. Ulysses Ojeda M.D. DR: CAMILLA JOB#: [id number] CC:
[2017-01-14 04:26] VITALS: BP 123/89
[2017-01-14 07:23] LABS: INR 1.1 (0.9-1.1); PROTHROMBIN TIME 11.1 SEC (9.30-11.50)
[2017-01-14 07:38] LABS: ANION GAP 14 (5-15); CALCIUM 8.9 mg/dL (8.6-10.2); CARBON DIOXIDE 26 mEQ/L (20-30); CHLORIDE 101 mEQ/L (98-107); CREATININE 0.8 mg/dL (0.5-0.9); GLOMERULAR FILTRATION RATE > 60 mL/min (>60); HEMOLYSIS 3; POTASSIUM 4.3 mEQ/L (3.4-4.9); SODIUM 141 mEQ/L (135-145)
[2017-01-14 07:41] LABS: DIGOXIN < 0.3 ng/mL (0.5-2.0)
[2017-01-14 07:47] LABS: TROPONIN I < 0.30 ng/mL (<=0.30)
[2017-01-14 07:49] LABS: CHOLESTEROL 131 mg/dL (< 200); CHOLESTEROL/HDL RATIO 2.6 (3.3-4.4); CRP QUANT < 0.3 mg/dL (< 0.5); HEMOLYSIS 6; LDL CHOLESTEROL (CALC.) 69 mg/dL (60-99); LYMPHOCYTES % (AUTO) 47.5 % (20.0-45.0); MEAN CORPUSCULAR HEMOGLOBIN 27.4 PG (27.0-31.0); MEAN CORPUSCULAR HGB CONC 31.1 G/DL (32.0-36.0); MEAN CORPUSCULAR VOLUME 88 FL (80-99); NEUTROPHILS % (AUTO) 41.5 % (45.0-75.0); PLATELET COUNT 182 K/UL (150-450); RED BLOOD COUNT 4.53 M/UL (4.20-5.40); RED CELL DISTRIBUTION WIDTH 13.7 % (11.6-14.8)
[2017-01-14 08:06] VITALS: BP 105/68
[2017-01-14] MEDS: Xarelto 10mg tab ORAL SCH (08:18)
[2017-01-14] MEDS ORDERED: Aspirin Baby 81mg ORAL SCH (09:00)
[2017-01-14] MEDS ORDERED: Lisinopril 2.5mg tab ORAL SCH (09:00)
[2017-01-14] MEDS ORDERED: Spironolactone 25mg tab ORAL SCH (09:00)
[2017-01-14] MEDS ORDERED: Lyrica 50mg cap ORAL SCH (09:00)
[2017-01-14 11:40] VITALS: BP 117/72
[2017-01-14 15:23] VITALS: BP 113/71
--- NOTE | 2017-01-14 16:31 | Cardiac Electrophysiology PN ---
Assessment/Plan Assessment/Plan 1. Shortness of breath due to congestive heart failure. Her BNP is 1500. On Lasix 40 mg intravenous daily. Repeat echo pending. 2. Chest pain due to congestive heart failure completely ruled out for myocardial infarction. 3. Hypertension. Dig, Coreg 3.125 mg twice daily, lisinopril 5 mg daily and Aldactone 25 mg daily and Lasix 40 mg intravenous daily. 4. Hx left leg clots and history of pulmonary embolism. Xarelto 20 mg daily. 5. Status post ablation of atrial flutter in 2012 6. Status post ablation of atrial tachycardia in 2014. 7. Status post ablation of AV del reentrant tachycardia in 2009. 8. Status post [employer] defibrillator implantation in 1999 and generator change in 2008 as well as 11/2015. 9. Status post new atrial lead placement in 02/2015 after an atrial lead fracture. ROBERTO RN and Dr Morrison Subjective Subjective Feeling better. No chest pain or SOB. Objective Last 24 Hour Vital Signs Date Time Temp Pulse Resp B/P Pulse Ox O2 Delivery O2 Flow Rate FiO2 01/14/17 15:23 97.3 56 18 113/71 99 Room Air 01/14/17 12:00 58 01/14/17 11:40 97.2 55 18 117/72 97 Room Air 01/14/17 08:23 63 01/14/17 08:23 63 121/71 01/14/17 08:22 121/71 01/14/17 08:06 97.0 65 18 105/68 97 Room Air 01/14/17 08:00 54 01/14/17 04:26 97.9 61 20 123/89 100 Room Air 01/14/17 04:00 53 01/14/17 00:00 97.7 52 20 128/72 99 Room Air 01/14/17 00:00 55 01/13/17 20:00 72 01/13/17 20:00 98.0 72 20 118/78 98 Room Air 01/13/17 19:59 72 118/78 01/13/17 17:49 71 18 121/88 99 Room Air 01/13/17 17:08 97.5 71 20 118/76 100 Room Air 21 01/13/17 17:07 97.5 73 20 114/78 100 Room Air 21 Intake and Output 01/13/17 01/14/17 19:00 07:00 # Voids 1 2 # Bowel Movements 1 1 Laboratory Tests Test 01/14/17 06:15 White Blood Count 6.0 K/UL (4.8-10.8) Red Blood Count 4.53 M/UL (4.20-5.40) Hemoglobin 12.4 G/DL (12.0-16.0) Hematocrit 39.9 % (37.0-47.0) Mean Corpuscular Volume 88 FL (80-99) Mean Corpuscular Hemoglobin 27.4 PG (27.0-31.0) Mean Corpuscular Hemoglobin Concent 31.1 G/DL (32.0-36.0) L Red Cell Distribution Width 13.7 % (11.6-14.8) Platelet Count 182 K/UL (150-450) Mean Platelet Volume 10.0 FL (6.5-10.1) Neutrophils (%) (Auto) 41.5 % (45.0-75.0) L Lymphocytes (%) (Auto) 47.5 % (20.0-45.0) H Monocytes (%) (Auto) 7.0 % (1.0-10.0) Eosinophils (%) (Auto) 3.0 % (0.0-3.0) Basophils (%) (Auto) 1.0 % (0.0-2.0) Prothrombin Time 11.1 SEC (9.30-11.50) Prothromb Time International Ratio 1.1 (0.9-1.1) Activated Partial Thromboplast Time 28 SEC (23-33) Sodium Level 141 mEQ/L (135-145) Potassium Level 4.3 mEQ/L (3.4-4.9) Chloride Level 101 mEQ/L (98-107) Carbon Dioxide Level 26 mEQ/L (20-30) Anion Gap 14 (5-15) Blood Urea Nitrogen 6 mg/dL (7-23) L Creatinine 0.8 mg/dL (0.5-0.9) Estimat Glomerular Filtration Rate > 60 mL/min (>60) Glucose Level 90 mg/dL (74-106) Calcium Level 8.9 mg/dL (8.6-10.2) Troponin I < 0.30 ng/mL (<=0.30) C-Reactive Protein, Quantitative < 0.3 mg/dL (< 0.5) Pro-B-Type Natriuretic Peptide 1108 pg/mL (0-125) H Triglycerides Level 58 mg/dL (< 150) Cholesterol Level 131 mg/dL (< 200) LDL Cholesterol 69 mg/dL (60-99) HDL Cholesterol 50 mg/dL (> 60) Cholesterol/HDL Ratio 2.6 (3.3-4.4) L Thyroid Stimulating Hormone (TSH) 1.800 uIU/mL (0.300-4.500) Digoxin Level < 0.3 ng/mL (0.5-2.0) L Objective HEAD AND NECK: Shows no JVD. LUNGS: Coarse rhonchi. CARDIOVASCULAR: Regular S1 and S2 with no gallop or murmur. ABDOMEN: Soft. EXTREMITIES: No pitting edema. WALDEMAR RAY January 14, 2017 16:31
--- NOTE | 2017-01-14 18:06 | Internal Med Progress Note ---
Subjective Physician Name Saurav Morrison Attending Physician Saurav Morrison MD Current Medications Medications (Trade) Dose Ordered Sig/Megan Route PRN Reason Start Time Stop Time Status Last Admin Dose Admin Acetaminophen (Tylenol) 650 mg Q4H PRN ORAL T>100.5 01/13/17 14:45 02/12/17 14:44 Acetaminophen/ Hydrocodone Bitart ([place] 10/325) 1 ea Q6H PRN ORAL Moderate Pain (Pain Scale 4-6) 01/13/17 18:00 01/20/17 17:59 Albuterol/ Ipratropium (DuoNeb 0.5-3(2.5)mg/3ml) 3 ml Q4H PRN HHN Shortness of Breath 01/13/17 14:45 01/18/17 14:44 Aripiprazole (Abilify) 30 mg QHS ORAL 01/13/17 21:00 02/12/17 20:59 Aspirin (ASA) 162 mg DAILY ORAL 01/14/17 09:00 02/13/17 08:59 01/14/17 08:22 Carvedilol (Coreg) 3.125 mg Q12HR ORAL 01/13/17 21:00 02/12/17 20:59 01/14/17 08:23 Cyclobenzaprine HCl (Flexeril) 10 mg Q8H PRN ORAL Muscle Spasm 01/13/17 14:45 02/12/17 14:44 Digoxin (Lanoxin) 0.25 mg DAILY ORAL 01/14/17 09:00 02/13/17 08:59 01/14/17 08:23 Diltiazem HCl (Cardizem) 10 mg Q1H PRN IV HR>120 01/13/17 18:00 02/12/17 17:59 Divalproex Sodium (Depakote ER) 1,000 mg BEDTIME ORAL 01/13/17 21:00 02/12/17 20:59 01/13/17 20:00 Enalaprilat (Vasotec) 2.5 mg Q6H PRN IV SBP>160 01/13/17 14:45 02/12/17 14:44 Escitalopram Oxalate (Lexapro) 10 mg DAILY ORAL 01/14/17 09:00 02/13/17 08:59 01/14/17 08:22 Furosemide (Lasix) 40 mg DAILY IV 01/15/17 09:00 02/14/17 08:59 Lisinopril (Zestril) 5 mg DAILY ORAL 01/14/17 09:00 02/13/17 08:59 01/14/17 08:22 Morphine Sulfate (Morphine Sulfate) 2 mg Q4H PRN IVP Severe Pain (Pain Scale 7-10) 01/13/17 14:45 01/20/17 14:44 01/14/17 16:50 Nitroglycerin (Ntg) 0.4 mg Q5MIN X 3 DOSES PRN SL Prn Chest Pain 01/13/17 16:30 02/12/17 16:29 Ondansetron HCl (Zofran) 4 mg Q6H PRN IVP Nausea & Vomiting 01/13/17 14:45 02/12/17 14:44 01/14/17 17:36 Pantoprazole (Protonix) 40 mg DAILY ORAL 01/14/17 09:00 02/13/17 08:59 01/14/17 08:22 Polyethylene Glycol (Miralax) 17 gm DAILYPRN PRN ORAL Constipation 01/13/17 14:45 02/12/17 14:44 Pregabalin (Lyrica) 50 mg Q12HR ORAL 01/14/17 09:00 02/13/17 08:59 01/14/17 08:19 Rivaroxaban (Xarelto) 20 mg DAILY@1800 ORAL 01/13/17 18:00 02/12/17 17:59 01/14/17 08:18 Spironolactone (Aldactone) 25 mg DAILY ORAL 01/14/17 09:00 02/13/17 08:59 01/14/17 11:32 Temazepam (Restoril) 15 mg HSPRN PRN ORAL Insomnia 01/13/17 21:00 01/20/17 20:59 Allergies: Coded Allergies: AMOXICILLIN (Verified Allergy, Mild, SWELLING, 04/11/10) EGG (Verified Allergy, Mild, RASH, 06/08/10) PENICILLINS (Verified Allergy, Mild, RASH, 04/11/10) Subjective awake, alert, responsive, NAD, No CP or SOB Objective Last Vital Signs Date Time Temp Pulse Resp B/P Pulse Ox O2 Delivery O2 Flow Rate FiO2 01/14/17 16:00 56 01/14/17 15:23 97.3 18 113/71 99 Room Air 01/13/17 17:08 21 Laboratory Tests Test 01/14/17 06:15 White Blood Count 6.0 K/UL (4.8-10.8) Red Blood Count 4.53 M/UL (4.20-5.40) Hemoglobin 12.4 G/DL (12.0-16.0) Hematocrit 39.9 % (37.0-47.0) Mean Corpuscular Volume 88 FL (80-99) Mean Corpuscular Hemoglobin 27.4 PG (27.0-31.0) Mean Corpuscular Hemoglobin Concent 31.1 G/DL (32.0-36.0) L Red Cell Distribution Width 13.7 % (11.6-14.8) Platelet Count 182 K/UL (150-450) Mean Platelet Volume 10.0 FL (6.5-10.1) Neutrophils (%) (Auto) 41.5 % (45.0-75.0) L Lymphocytes (%) (Auto) 47.5 % (20.0-45.0) H Monocytes (%) (Auto) 7.0 % (1.0-10.0) Eosinophils (%) (Auto) 3.0 % (0.0-3.0) Basophils (%) (Auto) 1.0 % (0.0-2.0) Prothrombin Time 11.1 SEC (9.30-11.50) Prothromb Time International Ratio 1.1 (0.9-1.1) Activated Partial Thromboplast Time 28 SEC (23-33) Sodium Level 141 mEQ/L (135-145) Potassium Level 4.3 mEQ/L (3.4-4.9) Chloride Level 101 mEQ/L (98-107) Carbon Dioxide Level 26 mEQ/L (20-30) Anion Gap 14 (5-15) Blood Urea Nitrogen 6 mg/dL (7-23) L Creatinine 0.8 mg/dL (0.5-0.9) Estimat Glomerular Filtration Rate > 60 mL/min (>60) Glucose Level 90 mg/dL (74-106) Calcium Level 8.9 mg/dL (8.6-10.2) Troponin I < 0.30 ng/mL (<=0.30) C-Reactive Protein, Quantitative < 0.3 mg/dL (< 0.5) Pro-B-Type Natriuretic Peptide 1108 pg/mL (0-125) H Triglycerides Level 58 mg/dL (< 150) Cholesterol Level 131 mg/dL (< 200) LDL Cholesterol 69 mg/dL (60-99) HDL Cholesterol 50 mg/dL (> 60) Cholesterol/HDL Ratio 2.6 (3.3-4.4) L Thyroid Stimulating Hormone (TSH) 1.800 uIU/mL (0.300-4.500) Digoxin Level < 0.3 ng/mL (0.5-2.0) L Intake and Output 01/13/17 01/14/17 19:00 07:00 # Voids 1 2 # Bowel Movements 1 1 Objective GENERAL: well-developed, well-nourished, and thin-appearing female, in no apparent distress. HEENT: Eyes, pupils are equal and responsive to light and accommodation. Extraocular movements are intact. NECK: Supple. No lymphadenopathy. CHEST: No crackles in bilateral bases, CTA, No wheezes or rales. CARDIOVASCULAR: Regular rate. S1 and S2. No murmurs, AICD @ left Chest wall ABDOMEN: Soft, nontender, and nondistended. Positive bowel sounds. Currently no rebound or guarding noted. EXTREMITIES: Negative for clubbing, cyanosis, or edema. RECTAL/GENITAL: Refused. NEUROLOGIC: Cranial nerves II through XII are grossly intact without focal deficits. Motor strength is 5/5 bilaterally. Assessment/Plan Assessment/Plan 1. Atypical Chest pain. 2. Shortness of breath. 3. Acute on chronic Congestive heart failure. 4. Atrial fibrillation. 5. Hypertension. 6. Cardiomyopathy. 7. Bipolar depression. 8. Hypothyroidism. 9. Anxiety disorder. 10. Depression, No suicidal idealization Plan: F/U with dr. Ojeda recommedations Monitor labs DC home in AM admit to observation patient is non compliance with Medications and office visits. Saurav Morrison MD January 14, 2017 18:06
--- NOTE | 2017-01-18 11:22 | Discharge Summary ---
Discharge Summary Hospital Course Date of Admission January 13, 2017 at 14:01 Date of Discharge January 14, 2017 at 20:09 Admitting Diagnosis ACS, Chest pain HPI Kim Judd is a 46 year old female who was admitted on January 13, 2017 at 14: 01 for Acute Coronary Syndrome,Chest Pain Hospital Course dc summary #[id number] Discharge Medications Continued Medications: Aripiprazole* (Abilify*) 30 Mg Tablet 30 MG ORAL QHS, TAB Budesonide/Formoterol Fumarate (Symbicort 160-4.5 Mcg Inhaler) 10.2 Gm Hfa.aer.ad 1 PUFF IH, #1 INH 0 Refills Carvedilol (Coreg) 3.125 Mg Tab 3.125 MG ORAL Q12H Take 1 tablet by mouth every 12 hours. Cyclobenzaprine Hcl* (Flexeril*) 10 Mg Tablet 10 MG ORAL TIDPRN PRN for Muscle Spasm, #1 TAB Digoxin* (Digoxin*) 125 Mcg Tablet 250 MCG ORAL DAILY, TAB Divalproex Sodium (Depakote) 500 Mg Tabec 1000 MG ORAL BEDTIME, TAB Escitalopram Oxalate* (Lexapro*) 10 Mg Tablet 10 MG ORAL DAILY, TAB Take 1 tablet by mouth every day. Hydrocodone/Acetaminophen 5-325* (Hydrocodone/Acetaminophen 5-325*) 1 Each Tablet 1 TAB ORAL Q6H PRN for For Pain, #20 TAB 0 Refills Lisinopril* (Lisinopril*) 10 Mg Tablet 5 MG ORAL DAILY, TAB Take 1 tablet by mouth daily. Lorazepam* (Ativan*) 1 Mg Tablet 1 MG ORAL BEDTIME, TAB Nitroglycerin (Nitrostat) 0.4 Mg Tab.subl 0.4 MG SL Q5M X3 DOSES PRN for Per rx protocol, #25 TAB 0 Refills Pregabalin (Lyrica) 50 Mg Cap 100 MG ORAL DAILY, CAP Rivaroxaban (Xarelto*) 10 Mg Tablet 20 MG ORAL DAILY, #30 TAB 0 Refills Spironolactone (Aldactone) 50 Mg Tab 25 MG ORAL DAILY, #30 TAB Temazepam (Temazepam*) 15 Mg Capsule 15 MG ORAL BEDTIME PRN for Per rx protocol, #30 CAP 0 Refills Discharge Condition Upon Discharge: stable Discharge Disposition Patient was discharged to Home () Discharge Diagnoses: Discharge Instructions Discharge Instructions Special Instructions I have been assigned to complete a D/C Summary on this account. I was not involved in the patient management Saray Schulte NP ([place]) January 18, 2017 11:22
--- NOTE | 2017-01-19 07:30 | Discharge Summary 2 SIG ---
DATE OF ADMISSION: 01/13/2017 DATE OF DISCHARGE: 01/14/2017 REASON FOR ADMISSION: 46-year-old female presented to emergency room with complaint of chest pain and shortness of breath since last night. The patient with a history of hypertension and congestive heart failure as well as AICD. The patient described chest pain as a sharp, midsternal, nonradiating, 10/10 on a scale of 1 to 10. She reported chest tightness. The patient has a history of asthma. She denied fever and chills. Denied cough. Denied nausea and vomiting. Workup in the emergency room revealed no leukocytosis. Stable hemoglobin and hematocrit. Stable electrolytes. Troponin was negative. Pro BNP was 1500. EKG showed pacemaker rhythm. No ischemic changes. Chest x-ray revealed cardiomegaly and AICD. The patient was given nebulizing treatment. Shortness of breath improved, but the patient continued to have chest pain. Aspirin was given. [place] was given. The patient was admitted for workup for acute coronary syndrome. ADMITTING DIAGNOSES: 1. Chest pain, 2. Rule out acute coronary syndrome. 3. Congestive heart failure. 4. Automatic implantable cardioverter-defibrillator. 5. Hypertension. 6. History of asthma HISTORY OF STAY: The patient was admitted to telemetry floor. Cardiology consult was requested. The patient was ruled out for acute IA due to the negative serial troponin and lack of ischemic changes on EKG. According to dry transfer man, chest pain and shortness of breath were likely secondary to acute CHF exacerbation. The patient's last echo done on 01/01/2017 revealed ejection fraction of 20% to 25%, right ventricular systolic pressure of 18. The patient on medical management of congestive heart failure including beta-thais, CHELSEA inhibitor, diuretic: Aldactone and Lasix and digoxin. The patient was on intense diuresis with IV Lasix. Renal parameters and electrolytes were closely monitored. Pro BNP trending down - 1108. Chest x-ray was stable. Xarelto was resumed. The patient with a history of atrial flutter, status post ablation as well as a history of PE and DVT. Radiologist Physician closely followed. Radiologist Physician cleared the patient for discharge. Blood pressure was stable with the current regimen of beta-thais, CHELSEA inhibitor, and diuretic. The patient was with underlying sinus rhythm with a paced rhythm. The patient has a history of asthma. While in the hospital, supplemental oxygen and pulmonary toilet were provided. No evidence of asthma exacerbation. At home continue Symbicort, reinforced compliance. Depakote and Abilify were continued. Antidepressive were continued, no evidence of suicidal ideations, Behavior controlled, mood stable. Vital signs were stable. Again, reinforced compliance with medication regimen. Due to rapid and unexpected improvement in patient condition, the patient was discharged in one day. DISCHARGE DIAGNOSES: 1. Atypical chest pain( due to congestive heart failure exacerbation). 2. Acute on chronic systolic and diastolic congestive heart failure exacerbation. 3. Cardiomyopathy. 4. Hypertension. 5. Status post ablation of atrial flutter in 2012. 6. Status post ablation of atrial tachycardia in 2014. 7. Status post [employer] defibrillator implantation in 1999 and generator change in 2008 and 2015. 8. Status post new atrial lead placement in 2014 (after an atrial lead fracture). 9. Anxiety. 10. Depression. 11. Bipolar disorder DISCHARGE MEDICATIONS: See medication reconciliation list. Encouraged compliance with medication. DISCHARGE INSTRUCTIONS: The patient was discharged home. Follow up with the primary medical doctor. Saurav Morrison M.D. I have been assigned to dictate discharge summary on this account and I was not involved in the patient's management. Saray Jungpriti N.PHaleigh DR: SERGIO JOB#: [id number] CC: CHELSEY
== END 2017-01-14 20:09 | disposition home or self-care (01) | DRG 293 ==
LOC: EMR 13:04 → 2E 14:01 → EDBEDREQ 14:50
DX: I11.0 Hypertensive heart disease with heart failure (principal); I42.9 Cardiomyopathy, unspecified; Z79.01 Long term (current) use of anticoagulants; I50.43 Acute on chronic combined systolic (congestive) and diastolic (congestive) heart failure; F31.9 Bipolar disorder, unspecified; E03.9 Hypothyroidism, unspecified; F41.9 Anxiety disorder, unspecified; I48.91 Unspecified atrial fibrillation; Z95.810 Presence of automatic (implantable) cardiac defibrillator
CPT/HCPCS: 36415; 71010; 80048; 80053; 80061; 80162; 82550; 82553; 83880; 84443; 84484; 85025; 85610; 85730; 86140; 93005; 94640; 94664; J2405

== ENCOUNTER 2017-01-28 08:51 | Inpatient (IN) | payer MEDICARE, OTHER ==
[~2017-01-28] VITALS: Ht 170.2 cm; Wt 54.4 kg
[2017-01-28] MEDS ORDERED: Lidocaine 2% Visc 15ml soln ORAL ONE (09:15)
[2017-01-28] MEDS ORDERED: Aspirin Baby 81mg ORAL ONE (09:15)
[2017-01-28] MEDS ORDERED: Mylanta II UD 30ml ORAL ONE (09:15)
[2017-01-28 09:30] VITALS: BP 116/75
[2017-01-28] MEDS ORDERED: Nitroglycerin 2% oint pkt TOPIC ONE (10:00)
[2017-01-28 10:30] VITALS: BP 165/83
[2017-01-28 10:30] LABS: BASOPHILS % (AUTO) 1.9 % (0.0-2.0); EOSINOPHILS % (AUTO) 2.8 % (0.0-3.0); LYMPHOCYTES % (AUTO) 42.8 % (20.0-45.0); MEAN CORPUSCULAR HEMOGLOBIN 27.4 PG (27.0-31.0); MEAN CORPUSCULAR HGB CONC 31.2 G/DL (32.0-36.0); MEAN CORPUSCULAR VOLUME 88 FL (80-99); NEUTROPHILS % (AUTO) 48.5 % (45.0-75.0); PLATELET COUNT 201 K/UL (150-450); RED BLOOD COUNT 4.54 M/UL (4.20-5.40); RED CELL DISTRIBUTION WIDTH 13.2 % (11.6-14.8); WHITE BLOOD COUNT 4.2 K/UL (4.8-10.8)
[2017-01-28 10:34] LABS: ALANINE AMINOTRANSFERASE 13 U/L (3-33); ALBUMIN/GLOBULIN RATIO 1.3 (1.0-2.7); ANION GAP 11 (5-15); ASPARTATE AMINO TRANSFERASE 15 U/L (5-40); CALCIUM 9.1 mg/dL (8.6-10.2); CARBON DIOXIDE 26 mEQ/L (20-30); CHLORIDE 103 mEQ/L (98-107); GLOMERULAR FILTRATION RATE > 60 mL/min (>60); HEMOLYSIS 15; POTASSIUM 3.8 mEQ/L (3.4-4.9); SODIUM 140 mEQ/L (135-145); TOTAL PROTEIN 6.2 g/dL (6.6-8.7)
[2017-01-28 10:35] LABS: TROPONIN I < 0.30 ng/mL (<=0.30)
[2017-01-28 10:36] LABS: PROTHROMBIN TIME 10.2 SEC (9.30-11.50)
[2017-01-28 10:45] LABS: CKMB < 1.5 ng/mL (< 3.8)
--- NOTE | 2017-01-28 11:02 | Diagnostic Imaging Report ---
Indication: Chest pain Technique: One view of the chest Comparison: 01/13/2007 Findings: Lungs and pleural spaces are clear. There is a left chest 3-lead AICD. The heart is borderline enlarged. No significant change Impression: No acute process. Borderline cardiomegaly
[2017-01-28 12:30] VITALS: BP 123/81
[2017-01-28] MEDS ORDERED: Norco 5mg/325mg tab ORAL PRN (14:15)
[2017-01-28] MEDS ORDERED: Nitroglycerin Subl 0.4mg tab (Bottle Of 25) SL PRN (14:15)
[2017-01-28] MEDS ORDERED: Cyclobenzaprine 10mg Tab ORAL PRN (14:15)
--- NOTE | 2017-01-28 14:31 | Cardiac Electrophysiology PN ---
Subjective Subjective [id number] Objective Last 24 Hour Vital Signs Date Time Temp Pulse Resp B/P Pulse Ox O2 Delivery O2 Flow Rate FiO2 01/28/17 13:26 97.5 67 19 123/81 95 Room Air 01/28/17 13:16 52 19 Room Air 01/28/17 12:30 97.5 67 19 123/81 95 Room Air 01/28/17 10:30 57 19 165/83 100 Room Air 01/28/17 10:18 121/76 01/28/17 09:30 97.5 53 19 116/75 100 Room Air 01/28/17 09:01 97.5 52 19 125/79 Laboratory Tests Test 01/28/17 10:00 White Blood Count 4.2 K/UL (4.8-10.8) L Red Blood Count 4.54 M/UL (4.20-5.40) Hemoglobin 12.4 G/DL (12.0-16.0) Hematocrit 39.9 % (37.0-47.0) Mean Corpuscular Volume 88 FL (80-99) Mean Corpuscular Hemoglobin 27.4 PG (27.0-31.0) Mean Corpuscular Hemoglobin Concent 31.2 G/DL (32.0-36.0) L Red Cell Distribution Width 13.2 % (11.6-14.8) Platelet Count 201 K/UL (150-450) Mean Platelet Volume 9.0 FL (6.5-10.1) Neutrophils (%) (Auto) 48.5 % (45.0-75.0) Lymphocytes (%) (Auto) 42.8 % (20.0-45.0) Monocytes (%) (Auto) 4.0 % (1.0-10.0) Eosinophils (%) (Auto) 2.8 % (0.0-3.0) Basophils (%) (Auto) 1.9 % (0.0-2.0) Prothrombin Time 10.2 SEC (9.30-11.50) Prothromb Time International Ratio 1.0 (0.9-1.1) Activated Partial Thromboplast Time 23 SEC (23-33) Sodium Level 140 mEQ/L (135-145) Potassium Level 3.8 mEQ/L (3.4-4.9) Chloride Level 103 mEQ/L (98-107) Carbon Dioxide Level 26 mEQ/L (20-30) Anion Gap 11 (5-15) Blood Urea Nitrogen 8 mg/dL (7-23) Creatinine 1.0 mg/dL (0.5-0.9) H Estimat Glomerular Filtration Rate > 60 mL/min (>60) Glucose Level 94 mg/dL (74-106) Calcium Level 9.1 mg/dL (8.6-10.2) Total Bilirubin 0.9 mg/dL (0.0-1.2) Aspartate Amino Transf (AST/SGOT) 15 U/L (5-40) Alanine Aminotransferase (ALT/SGPT) 13 U/L (3-33) Alkaline Phosphatase 85 U/L (35-104) Total Creatine Kinase 92 U/L (26-140) Creatine Kinase MB < 1.5 ng/mL (< 3.8) Creatine Kinase MB Relative Index Troponin I < 0.30 ng/mL (<=0.30) Pro-B-Type Natriuretic Peptide 738 pg/mL (0-125) H Total Protein 6.2 g/dL (6.6-8.7) L Albumin 3.6 g/dL (3.5-5.2) Globulin 2.6 g/dL Albumin/Globulin Ratio 1.3 (1.0-2.7) Digoxin Level < 0.3 ng/mL (0.5-2.0) WALDEMAR CHAUHAN Jan 28, 2017 14:31
[2017-01-28 15:27] VITALS: BP 144/88
--- NOTE | 2017-01-28 15:53 | Emergency Room Report ---
History of Present Illness General Chief Complaint: Chest Pain Source: Patient Present Illness HPI This patient complains of chest pressure and shortness of breath for the past 2 days. Patient states has a history of congestive heart failure and COPD. She states that the symptoms are similar to her previous CHF exacerbations. She states that she didn't come in the hospital she wanted to see her son graduate from high school. She denies recent illness. She is comfortable just and. She is fever chills. She has no other complaints. Allergies: Coded Allergies: AMOXICILLIN (Verified Allergy, Mild, SWELLING, 04/11/10) EGG (Verified Allergy, Mild, RASH, 06/08/10) PENICILLINS (Verified Allergy, Mild, RASH, 04/11/10) Patient History Past Medical History: see triage record, HTN, CAD, CHF, GERD, psych hx, other - Hyperthyroid Past Surgical History: pacemaker Social History: Denies: alcohol use, drug use, smoking Last Menstrual Period: 1 year ago Now: No Reviewed Nursing Documentation: PMH: Agreed, PSxH: Agreed Nursing Documentation-PMH Past Medical History: No History, Except For Hx Cardiac Problems: Yes Hx Hypertension: Yes Hx Pacemaker: Yes - on left chest Hx Asthma: No Hx COPD: Yes Hx Diabetes: No Hx Cancer: No Hx Gastrointestinal Problems: No Hx Dialysis: No Hx Neurological Problems: No Hx Cerebrovascular Accident: Yes - 2012 Hx Transient Ischemic Attacks: Yes Hx Dementia: No Hx Alzheimer's Disease: No Hx Parkinson's Disease: No Hx Meningitis: No Hx Encephalitis: No Hx Seizures: No Hx Epilepsy: No Hx Multiple Sclerosis: No Hx Cerebral Palsy: No Hx Amyotrophic Lat Sclerosis: No Hx Guillian-Easton Syndrome: No Hx Paralysis: Yes Hx Peripheral Neuropathy: No Hx Spinal Cord Injury: No Hx Head Trauma: No Hx Traumatic Brain Injury: No Hx Memory Loss: No Hx Concentration Difficulty: No Hx Speech Problem: No Hx Tremors: No Hx Vertigo: No Hx Dizziness: No Hx Syncope: No Hx Headaches: Yes - Migraines Hx Aphasia: No Hx Dysphasia: No Hx Numbness: No Hx Weakness: No Hx Fatigue: No Hx Neurologic Surgery: No Hx Brain Shunt: No Review of Systems All Other Systems: negative except mentioned in HPI Physical Exam Vital Signs Date Time Temp Pulse Resp B/P Pulse Ox O2 Delivery O2 Flow Rate FiO2 01/28/17 09:01 97.5 52 19 125/79 01/28/17 09:30 100 Room Air Sp02 EP Interpretation: reviewed, normal General Appearance: no apparent distress, alert, GCS 15, non-toxic Head: normocephalic, atraumatic Eyes: bilateral eye PERRL, bilateral eye normal inspection ENT: hearing grossly normal, normal pharynx, no angioedema, normal voice Neck: full range of motion, supple/symm/no masses Respiratory: chest non-tender, lungs clear, normal breath sounds, no respiratory distress, no retraction, no accessory muscle use, speaking full sentences Cardiovascular #1: regular rate, rhythm, no edema Gastrointestinal: normal bowel sounds, non tender, soft, non-distended, no guarding, no rebound Rectal: deferred Musculoskeletal: back normal, gait/station normal, normal range of motion, non- tender, calf tenderness Neurologic: alert, oriented x3, responsive, motor strength/tone normal, sensory intact, speech normal Psychiatric: judgement/insight normal, memory normal, mood/affect normal, no suicidal/homicidal ideation Skin: normal color, no rash, warm/dry, well hydrated Medical Decision Making Diagnostic Impression: Primary Impression: Chest pain Additional Impression: Congestive heart failure (CHF) ER Course This patient presents with chest pain and shortness of breath. She has a history of congestive heart failure and pacemaker placement. There is no obvious decompensated CHF on exam. However, patient does have ongoing chest pain. The patient will be admitted for further evaluation and treatment. Laboratory workup is pertinent for an elevated BNP in the 700s. Otherwise laboratory workup is noncontributory. The patient is admitted to telemetry. Labs Test 01/28/17 10:00 01/28/17 10:30 White Blood Count 4.2 K/UL (4.8-10.8) Red Blood Count 4.54 M/UL (4.20-5.40) Hemoglobin 12.4 G/DL (12.0-16.0) Hematocrit 39.9 % (37.0-47.0) Mean Corpuscular Volume 88 FL (80-99) Mean Corpuscular Hemoglobin 27.4 PG (27.0-31.0) Mean Corpuscular Hemoglobin Concent 31.2 G/DL (32.0-36.0) Red Cell Distribution Width 13.2 % (11.6-14.8) Platelet Count 201 K/UL (150-450) Mean Platelet Volume 9.0 FL (6.5-10.1) Neutrophils (%) (Auto) 48.5 % (45.0-75.0) Lymphocytes (%) (Auto) 42.8 % (20.0-45.0) Monocytes (%) (Auto) 4.0 % (1.0-10.0) Eosinophils (%) (Auto) 2.8 % (0.0-3.0) Basophils (%) (Auto) 1.9 % (0.0-2.0) Prothrombin Time 10.2 SEC (9.30-11.50) Prothromb Time International Ratio 1.0 (0.9-1.1) Activated Partial Thromboplast Time 23 SEC (23-33) Sodium Level 140 mEQ/L (135-145) Potassium Level 3.8 mEQ/L (3.4-4.9) Chloride Level 103 mEQ/L (98-107) Carbon Dioxide Level 26 mEQ/L (20-30) Anion Gap 11 (5-15) Blood Urea Nitrogen 8 mg/dL (7-23) Creatinine 1.0 mg/dL (0.5-0.9) Estimat Glomerular Filtration Rate > 60 mL/min (>60) Glucose Level 94 mg/dL (74-106) Calcium Level 9.1 mg/dL (8.6-10.2) Total Bilirubin 0.9 mg/dL (0.0-1.2) Aspartate Amino Transf (AST/SGOT) 15 U/L (5-40) Alanine Aminotransferase (ALT/SGPT) 13 U/L (3-33) Alkaline Phosphatase 85 U/L (35-104) Total Creatine Kinase 92 U/L (26-140) Creatine Kinase MB < 1.5 ng/mL (< 3.8) Creatine Kinase MB Relative Index Troponin I < 0.30 ng/mL (<=0.30) Pro-B-Type Natriuretic Peptide 738 pg/mL (0-125) Total Protein 6.2 g/dL (6.6-8.7) Albumin 3.6 g/dL (3.5-5.2) Globulin 2.6 g/dL Albumin/Globulin Ratio 1.3 (1.0-2.7) Digoxin Level < 0.3 ng/mL (0.5-2.0) D-Dimer 536 ng/mL (<500) EKG Diagnostic Results Rate: other ST Segments: no acute changes Other Impression Paced Rhythm Strip Diag. Results EP Interpretation: yes Rate: 50's Rhythm: no PVC's, no ectopy Other Impression Paced Chest X-Ray Diagnostic Results Chest X-Ray Ordered: Yes # of Views/Limited/Complete: 1 View Interpretation: no consolidation, no effusion, no pneumothorax, no acute cardiopulmonary disease Indication: Chest Pain Impression: No acute disease Date Electronically Signed: Jan 28, 2017 Time Electronically Signed: 15:53 Last Vital Signs Date Time Temp Pulse Resp B/P Pulse Ox O2 Delivery O2 Flow Rate FiO2 01/28/17 15:27 97.7 55 19 144/88 99 Room Air 55 Disposition: ADMITTED INPATIENT Condition: Stable Referrals: Saurav Morrison MD (PCP) TRACY BYRNE D.O. Jan 28, 2017 15:53
[2017-01-28] MEDS: Norco 5mg/325mg tab ORAL PRN (15:57)
[2017-01-28] MEDS: Xarelto 10mg tab ORAL SCH (17:05)
--- NOTE | 2017-01-28 19:28 | History & Physical ---
History and Physical History & Physicial Dictated for Int Med-Dr Morrison no. [id number]. KRISTAL WEI Jan 28, 2017 19:28
[2017-01-28 20:00] VITALS: BP 127/55
[2017-01-28] MEDS: Depakote 500mg tab ORAL SCH (20:45)
[2017-01-28] MEDS: LORazepam 1mg tab ORAL SCH (20:45)
--- NOTE | 2017-01-28 22:45 | History and Physical Report ---
DATE OF ADMISSION: 01/28/2017 CHIEF COMPLAINT: The patient is a 46-year-old female with history of congestive heart failure and chronic obstructive pulmonary disease, presents with a chief complaint of shortness of breath and chest pressure. HISTORY OF PRESENT ILLNESS: The patient has a history of congestive heart failure. The patient also has a history of chronic obstructive pulmonary disease. The patient began to experience chest pressure and shortness of breath a few days ago. This is increased over the last two days. The patient presented to [facility]. The patient was admitted for acute on chronic exacerbation of congestive heart failure. REVIEW OF SYSTEMS: Constitutional: The patient denies weight loss or gain. The patient denies fevers or chills. HEENT: The patient denies ear or throat pain. The patient denies headache. Cardiovascular: The patient denies palpitations. The patient complains of chest pressure as above. Chest: The patient complains of shortness of breath as above. The patient denies wheezes. Abdomen: The patient denies nausea, vomiting, diarrhea, or constipation. Genitourinary: The patient denies dysuria or increased frequency of urination. Neuromuscular: The patient denies seizures or generalized weakness. PAST MEDICAL HISTORY: Significant for: 1. Congestive heart failure. 2. Atrial fibrillation. 3. Cardiomyopathy. 4. Bipolar depression. 5. Hypothyroidism. 6. Hypertension. 7. Anxiety. 8. Major depression. PAST SURGICAL HISTORY: Significant for AICD placement x3, last placement was in November [address] Ulysses Ojeda. CURRENT MEDICATIONS: 1. Abilify 30 mg one tablet p.o. at bedtime. 2. Symbicort one puff p.o. daily. 3. Carvedilol 3.125 mg one tablet p.o. twice daily. 4. Flexeril 10 mg one tablet p.o. three times daily. 5. Digoxin 0.25 mg one tablet p.o. daily. 6. Depakote 1000 mg one tablet p.o. at bedtime. 7. Lexapro 10 mg one tablet p.o. daily. 8. [place] 5/325 mg one tablet p.o. q.6 h. p.r.n. 9. Lisinopril 10 mg one tablet p.o. daily. 10. Lorazepam 1 mg one tablet p.o. at bedtime. 11. Nitrostat 0.4 mg one sublingual p.r.n. 12. Lyrica 50 mg two tablets p.o. daily. 13. Xarelto 20 mg one tablet p.o. daily. 14. Spironolactone 25 mg one tablet p.o. daily. 15. Temazepam 15 mg one tablet p.o. at bedtime. ALLERGIES: Penicillin. SOCIAL HISTORY: The patient is single and lives with her adult daughter. The patient is disabled. The patient admits to tobacco use of 1/4 pack per day. The patient admits occasional alcohol use. The patient denies other drugs abuse. PHYSICAL EXAMINATION: VITAL SIGNS: Temperature is 97.5 degrees and 97.7 degrees, respirations 19, pulse 52 to 67, and blood pressure 123-144/81 to 88. GENERALLY: The patient is a well-developed and well-nourished female, in no apparent distress. HEENT: Eyes, pupils are equal and responsive to light and accommodation. Extraocular movements are intact. NECK: Supple. No lymphadenopathy. CHEST: Lungs are clear to auscultation bilaterally without wheezes or rales. CARDIOVASCULAR: Regular rate. S1 and S2. No murmurs, rubs, or gallops. ABDOMEN: Soft, nontender, and nondistended. Positive bowel sounds. No evidence of hepatosplenomegaly. Currently, no rebound or guarding noted. EXTREMITIES: Negative for clubbing, cyanosis, or edema. RECTAL/GENITALIA: Refused. NEUROLOGIC: Cranial nerves II to XII are grossly intact without focal deficits. Motor strength is 5/5 bilaterally. Deep tendon reflexes are 2+ plantar. LABORATORY STUDIES: WBC is 4.2, hemoglobin 12.4, hematocrit 39.9, and platelets 201,000. Sodium is 140, potassium 3.8, chloride 103, CO2 26, BUN 8, creatinine 1.0, and glucose 94. Troponin is less than 0.3. BNP is elevated at 738. Digoxin is less than 0.3. ASSESSMENT: This is a 46-year-old female, 1. Chest pain. 2. Shortness of breath. 3. Acute on chronic congestive heart failure. 4. Atrial fibrillation. 5. Chronic obstructive pulmonary disease. 6. Cardiomyopathy. 7. Coronary artery disease. 8. Hypertension. 9. Hypothyroidism. TREATMENT: 1. Chest pain/shortness of breath. A Cardiology consultation has been obtained with Dr. Ulysses Ojeda. Serial troponin levels will be performed. Serial BNPs will be performed. We will follow recommendation of Cardiology. The patient is currently receiving Lasix intravenously. 2. Congestive heart failure. A Cardiology consultation has been obtained with Dr. Ulysses Ojeda. We will follow the recommendations of Cardiology. Serial BNPs will be performed. The patient is currently receiving Lasix intravenously. 3. Atrial fibrillation. Continue digoxin as above. 4. Chronic obstructive pulmonary disease. A Pulmonary consultation has been obtained with Dr. Francisco Dang. Continue Symbicort as above. 5. Cardiomyopathy. 6. Coronary artery disease. 7. Hypertension. The patient will continue lisinopril as above. 8. Hypothyroidism. The patient has a thyroid function panel pending. Aron Pope M.D. DR: Angle JOB#: [id number] CC:
[2017-01-29] VITALS: BP 109/63
--- NOTE | 2017-01-29 01:00 | Consultation ---
DATE OF CONSULTATION: 01/28/2017 CARDIOLOGY CONSULTATION CONSULTING PHYSICIAN: Ulysses Ojeda M.D. REFERRING PHYSICIAN: Saurav Morrison M.D. REASON FOR CONSULTATION: Chest pain and congestive heart failure. HISTORY OF PRESENT ILLNESS: The patient is a 46-year-old lady under my cardiology care with history of severe nonischemic cardiomyopathy, ejection fraction of 25% as well as history of atrial flutter, status post ablation in December 2012. The patient also has a history of ablation of atrial tachycardia in 2014 and ablation of AV del reentrant tachycardia in 2009, all at [facility]. Also, the patient has a history of [employer] defibrillator [place] and then subsequent generator change by me in 2008 and 2015 at [facility]. The patient also has a history of lead fracture and underwent atrial lead replacement in February 2015. The patient was recently in the hospital less than a month ago with exacerbation of congestive heart failure and was readmitted again for chest pain and shortness of breath. At the time of my evaluation, she is feeling better. She stated that her ankle was little bit swollen, but improved after IV Lasix. PAST MEDICAL HISTORY: As mentioned above. FAMILY HISTORY: Noncontributory. SOCIAL HISTORY: She lives at home. She does not smoke or drink alcohol. REVIEW OF SYSTEMS: Her review of systems was performed and was negative other than what was mentioned in history of present illness. PHYSICAL EXAMINATION: VITAL SIGNS: Blood pressure . NECK: Positive JVD. LUNGS: Clear. CARDIOVASCULAR: Regular S1 and S2 with a soft systolic murmur. Defibrillator is in the left subclavian. ABDOMEN: Soft. EXTREMITIES: No pitting edema. LABORATORY DATA: Labs showed white count of 4.2, hemoglobin of 12.4, hematocrit of 40, and platelet count is 201,000. Sodium is 140, potassium 3.8, BUN of 8, creatinine 1, and glucose of 68. Troponin negative x2 and BNP is 738. ASSESSMENT AND PLAN: 1. Exacerbation of congestive heart failure. Her BNP in the 700 range. Her last echocardiogram on 01/01/2017 shows ejection fraction of only 25%. Continue the patient on IV Lasix and resume the patient's heart failure medications as well. The patient was on Coreg 3.125 mg b.i.d., lisinopril 5 mg daily, Aldactone 25 mg daily, and Lasix 40 mg IV daily as well as digoxin. 2. Chest pain due to congestive heart failure. We will completely rule out myocardial infarction protocol. 3. Status post [employer] defibrillator implantation and most recent generator change in November 2015. A recent interrogation in the office showed normal function. 4. Status post atrioventricular del reentrant tachycardia ablation in 2009. 5. Status post atrial flutter ablation in 2012. 6. History of atrial tachycardia ablation in 2014. 7. History of new atrial lead placement in February 2015 for atrial lead fracture. 8. Pulmonary embolus and leg clots, on Xarelto. Thank very much, Dr. Morrison, for allowing me to participate in the care of this patient. Please do not hesitate to contact me if you have any questions regarding my evaluation. Ulysses Ojeda M.D. DR: NACHO JOB#: [id number] CC:
[2017-01-29 04:00] VITALS: BP 130/82
[2017-01-29 08:00] VITALS: BP 113/78
[2017-01-29 08:02] LABS: BASOPHILS % (AUTO) 1.9 % (0.0-2.0); LYMPHOCYTES % (AUTO) 32.5 % (20.0-45.0); MEAN CORPUSCULAR HEMOGLOBIN 27.5 PG (27.0-31.0); MEAN CORPUSCULAR HGB CONC 31.3 G/DL (32.0-36.0); MEAN CORPUSCULAR VOLUME 88 FL (80-99); NEUTROPHILS % (AUTO) 60.6 % (45.0-75.0); PLATELET COUNT 184 K/UL (150-450); RED BLOOD COUNT 5.23 M/UL (4.20-5.40); RED CELL DISTRIBUTION WIDTH 13.2 % (11.6-14.8); WHITE BLOOD COUNT 5.7 K/UL (4.8-10.8)
[2017-01-29 08:19] LABS: ANION GAP 17 (5-15); CALCIUM 9.5 mg/dL (8.6-10.2); CARBON DIOXIDE 25 mEQ/L (20-30); CHLORIDE 97 mEQ/L (98-107); CREATININE 0.9 mg/dL (0.5-0.9); GLOMERULAR FILTRATION RATE > 60 mL/min (>60); HEMOLYSIS 6; POTASSIUM 3.9 mEQ/L (3.4-4.9); SODIUM 139 mEQ/L (135-145)
[2017-01-29 08:20] LABS: TROPONIN I < 0.30 ng/mL (<=0.30)
[2017-01-29] MEDS: Spironolactone 25mg tab ORAL SCH (09:27)
[2017-01-29] MEDS: Lisinopril 2.5mg tab ORAL SCH (09:27)
[2017-01-29] MEDS: Lyrica 50mg cap ORAL SCH (09:28)
[2017-01-29 12:00] VITALS: BP 118/75
--- NOTE | 2017-01-29 15:05 | Cardiac Electrophysiology PN ---
Assessment/Plan Assessment/Plan 1. Exacerbation of congestive heart failure. Her BNP in the 700 range. Her echocardiogram on 01/01/2017 shows ejection fraction of only 25%. Continue IV Lasix, Coreg 3.125 mg b.i.d., lisinopril 5 mg daily, Aldactone 25 mg daily, and digoxin. 2. Chest pain due to congestive heart failure. Ruled out for myocardial infarction. 3. Status post [employer] defibrillator implantation and most recent generator change in November 2015. A recent interrogation in the office showed normal function. 4. Status post atrioventricular del reentrant tachycardia ablation in 2009. 5. Status post atrial flutter ablation in 2012. 6. History of atrial tachycardia ablation in 2014. 7. History of new atrial lead placement in February 2015 for atrial lead fracture. 8. Pulmonary embolus and leg clots, on Xarelto. ROBERTO RN Subjective Subjective Still off and on chest pain. No arrhythmias omn tele. V Paced. Objective Last 24 Hour Vital Signs Date Time Temp Pulse Resp B/P Pulse Ox O2 Delivery O2 Flow Rate FiO2 01/29/17 12:00 77 18 118/75 98 Room Air 01/29/17 12:00 68 01/29/17 09:28 72 113/78 01/29/17 09:27 113/78 01/29/17 09:27 72 01/29/17 08:30 Room Air 21 01/29/17 08:30 Room Air 21 01/29/17 08:00 62 01/29/17 08:00 72 18 113/78 98 Room Air 01/29/17 04:00 97.0 77 18 130/82 90 Room Air 01/29/17 04:00 67 01/29/17 00:00 54 01/29/17 00:00 95.0 86 20 109/63 94 Room Air 01/28/17 21:22 62 18 96 Room Air 21 01/28/17 21:20 60 18 96 Room Air 21 01/28/17 20:45 96 127/55 01/28/17 20:00 52 01/28/17 20:00 90.9 96 20 127/55 95 Room Air 01/28/17 16:56 97.7 01/28/17 15:43 52 01/28/17 15:27 97.7 55 19 144/88 99 Room Air 55 Intake and Output 01/28/17 01/29/17 19:00 07:00 Intake Total 360 ml Output Total 400 ml Balance 360 ml -400 ml Intake Oral 240 ml Other 120 ml Output Urine Total 400 ml Laboratory Tests Test 01/29/17 07:20 White Blood Count 5.7 K/UL (4.8-10.8) Red Blood Count 5.23 M/UL (4.20-5.40) Hemoglobin 14.4 G/DL (12.0-16.0) Hematocrit 46.1 % (37.0-47.0) Mean Corpuscular Volume 88 FL (80-99) Mean Corpuscular Hemoglobin 27.5 PG (27.0-31.0) Mean Corpuscular Hemoglobin Concent 31.3 G/DL (32.0-36.0) L Red Cell Distribution Width 13.2 % (11.6-14.8) Platelet Count 184 K/UL (150-450) Mean Platelet Volume 9.0 FL (6.5-10.1) Neutrophils (%) (Auto) 60.6 % (45.0-75.0) Lymphocytes (%) (Auto) 32.5 % (20.0-45.0) Monocytes (%) (Auto) 4.0 % (1.0-10.0) Eosinophils (%) (Auto) 1.0 % (0.0-3.0) Basophils (%) (Auto) 1.9 % (0.0-2.0) Sodium Level 139 mEQ/L (135-145) Potassium Level 3.9 mEQ/L (3.4-4.9) Chloride Level 97 mEQ/L (98-107) L Carbon Dioxide Level 25 mEQ/L (20-30) Anion Gap 17 (5-15) H Blood Urea Nitrogen 8 mg/dL (7-23) Creatinine 0.9 mg/dL (0.5-0.9) Estimat Glomerular Filtration Rate > 60 mL/min (>60) Glucose Level 92 mg/dL (74-106) Calcium Level 9.5 mg/dL (8.6-10.2) Troponin I < 0.30 ng/mL (<=0.30) Pro-B-Type Natriuretic Peptide 830 pg/mL (0-125) H Objective NECK: Positive JVD. LUNGS: Clear. CARDIOVASCULAR: Regular S1 and S2 with a soft systolic murmur. Defibrillator is in the left subclavian. ABDOMEN: Soft. EXTREMITIES: No pitting edema. WALDEMAR RAY Jan 29, 2017 15:05
[2017-01-29 16:00] VITALS: BP 102/56
--- NOTE | 2017-01-29 16:03 | Internal Med Progress Note ---
Subjective Date of Service: Jan 29, 2017 Physician Name Aron Wei Attending Physician Saurav Morrison MD Current Medications Medications (Trade) Dose Ordered Sig/Megan Route PRN Reason Start Time Stop Time Status Last Admin Dose Admin Acetaminophen/ Hydrocodone Bitart ([place] 5/325) 1 tab Q6H PRN ORAL Moderate Pain (Pain Scale 4-6) 01/28/17 13:00 02/04/17 12:59 01/28/17 15:57 Aripiprazole (Abilify) 30 mg QHS ORAL 01/28/17 21:00 02/27/17 20:59 01/28/17 20:45 Budesonide/ Formoterol Fumarate (Symbicort 160/ 4.5) 2 puff Q12HR INH 01/28/17 21:00 02/27/17 20:59 01/28/17 21:26 Carvedilol (Coreg) 3.125 mg Q12HR ORAL 01/28/17 21:00 02/27/17 20:59 01/29/17 09:28 Cyclobenzaprine HCl (Flexeril) 10 mg TIDPRN PRN ORAL Muscle Spasm 01/28/17 14:15 02/27/17 14:14 Digoxin (Lanoxin) 0.25 mg DAILY ORAL 01/29/17 09:00 02/28/17 08:59 01/29/17 09:27 Divalproex Sodium (Depakote) 1,000 mg BEDTIME ORAL 01/28/17 21:00 02/27/17 20:59 01/28/17 20:45 Escitalopram Oxalate (Lexapro) 10 mg DAILY ORAL 01/29/17 09:00 02/28/17 08:59 01/29/17 09:26 Furosemide (Lasix) 40 mg EVERY 12 HOURS IV 01/28/17 21:00 02/27/17 20:59 01/29/17 09:27 Lisinopril (Zestril) 5 mg DAILY ORAL 01/29/17 09:00 02/28/17 08:59 01/29/17 09:27 Lorazepam (Ativan) 1 mg BEDTIME ORAL 01/28/17 21:00 02/04/17 20:59 01/28/17 20:45 Nitroglycerin (Ntg) 0.4 mg Q5M PRN SL Per rx protocol 01/28/17 14:15 02/27/17 14:14 Pregabalin (Lyrica) 100 mg DAILY ORAL 01/29/17 09:00 02/28/17 08:59 01/29/17 09:28 Rivaroxaban (Xarelto) 20 mg QPM ORAL 01/28/17 18:00 02/27/17 17:59 01/28/17 17:05 Spironolactone (Aldactone) 25 mg DAILY ORAL 01/29/17 09:00 02/28/17 08:59 01/29/17 09:27 Temazepam (Restoril) 15 mg BEDTIME PRN ORAL SLEEP 01/28/17 14:17 02/04/17 14:14 Allergies: Coded Allergies: AMOXICILLIN (Verified Allergy, Mild, SWELLING, 04/11/10) EGG (Verified Allergy, Mild, RASH, 06/08/10) PENICILLINS (Verified Allergy, Mild, RASH, 04/11/10) ROS Limited/Unobtainable: No Constitutional: Reports: no symptoms HEENT: Reports: no symptoms Cardiovascular: Reports: chest pain Respiratory: Reports: shortness of breath Gastrointestinal/Abdominal: Reports: no symptoms Genitourinary: Reports: no symptoms Neurologic/Psychiatric: Reports: no symptoms Subjective 46 YO F admitted with chest pain and shortness of breath. Now CHF. Cover for Int Med-Dr Morrison. Objective Last Vital Signs Date Time Temp Pulse Resp B/P Pulse Ox O2 Delivery O2 Flow Rate FiO2 01/29/17 12:00 77 18 118/75 98 Room Air 01/29/17 08:30 21 01/29/17 04:00 97.0 Laboratory Tests Test 01/29/17 07:20 White Blood Count 5.7 K/UL (4.8-10.8) Red Blood Count 5.23 M/UL (4.20-5.40) Hemoglobin 14.4 G/DL (12.0-16.0) Hematocrit 46.1 % (37.0-47.0) Mean Corpuscular Volume 88 FL (80-99) Mean Corpuscular Hemoglobin 27.5 PG (27.0-31.0) Mean Corpuscular Hemoglobin Concent 31.3 G/DL (32.0-36.0) L Red Cell Distribution Width 13.2 % (11.6-14.8) Platelet Count 184 K/UL (150-450) Mean Platelet Volume 9.0 FL (6.5-10.1) Neutrophils (%) (Auto) 60.6 % (45.0-75.0) Lymphocytes (%) (Auto) 32.5 % (20.0-45.0) Monocytes (%) (Auto) 4.0 % (1.0-10.0) Eosinophils (%) (Auto) 1.0 % (0.0-3.0) Basophils (%) (Auto) 1.9 % (0.0-2.0) Sodium Level 139 mEQ/L (135-145) Potassium Level 3.9 mEQ/L (3.4-4.9) Chloride Level 97 mEQ/L (98-107) L Carbon Dioxide Level 25 mEQ/L (20-30) Anion Gap 17 (5-15) H Blood Urea Nitrogen 8 mg/dL (7-23) Creatinine 0.9 mg/dL (0.5-0.9) Estimat Glomerular Filtration Rate > 60 mL/min (>60) Glucose Level 92 mg/dL (74-106) Calcium Level 9.5 mg/dL (8.6-10.2) Troponin I < 0.30 ng/mL (<=0.30) Pro-B-Type Natriuretic Peptide 830 pg/mL (0-125) H Intake and Output 01/28/17 01/29/17 19:00 07:00 Intake Total 360 ml Output Total 400 ml Balance 360 ml -400 ml Intake Oral 240 ml Other 120 ml Output Urine Total 400 ml Objective General: alert, cooperative, no distress, appears stated age Head: normocephalic, without obvious abnormality, atraumatic Eyes: conjunctivae/corneas clear. PERRL, EOM's intact Throat: lips, mucosa, and tongue normal. MMM Neck: supple, symmetrical, trachea midline, and no JVD Lungs: crackles bilat bases, otherwise, clear to auscultation bilaterally Heart: regular rate and rhythm, S1, S2 normal, no murmur, click, rub or gallop Abdomen: soft, non-tender, non-distended, bowel sounds normal; no masses or organomegaly Extremities: extremities normal, atraumatic, no cyanosis or edema Pulses: 2+ and symmetric Skin: skin color, texture, turgor normal; no rashes or lesions Neurologic: grossly normal, no focal deficits Assessment/Plan Problem List: (1) SOB (shortness of breath) Assessment & Plan: Due to CHF (2) CHF (congestive heart failure) Assessment & Plan: BNP 700. See cardiology note. (3) Chest Pain Assessment & Plan: Due to CHF. Ruled out for Acute OH-see cardiology note (4) Hypothyroidism (5) Pulmonary embolism Assessment & Plan: Cont xarelto (6) DVT (deep venous thrombosis) Assessment & Plan: Cont xarelto (7) AICD (automatic cardioverter/defibrillator) present (8) Atrial fibrillation Assessment & Plan: S/P ablation. See cardiology note. (9) Cardiomyopathy (10) Hypertension Status: not improved ARON WEI Jan 29, 2017 16:03
[2017-01-29] MEDS: Xarelto 10mg tab ORAL SCH (16:11)
[2017-01-29 20:00] VITALS: BP 102/64
[2017-01-29] MEDS: Depakote 500mg tab ORAL SCH (20:43)
[2017-01-29] MEDS: LORazepam 1mg tab ORAL SCH (20:43)
[2017-01-29] MEDS: Norco 5mg/325mg tab ORAL PRN (20:51)
[2017-01-30] VITALS: BP 98/60
[2017-01-30 04:00] VITALS: BP 99/55
[2017-01-30 08:00] VITALS: BP 98/61
[2017-01-30 08:12] LABS: BASOPHILS % (AUTO) 1.4 % (0.0-2.0); EOSINOPHILS % (AUTO) 0.9 % (0.0-3.0); LYMPHOCYTES % (AUTO) 38.6 % (20.0-45.0); MEAN CORPUSCULAR HEMOGLOBIN 27.9 PG (27.0-31.0); MEAN CORPUSCULAR HGB CONC 31.9 G/DL (32.0-36.0); MEAN CORPUSCULAR VOLUME 87 FL (80-99); MONOCYTES % (AUTO) 5.2 % (1.0-10.0); NEUTROPHILS % (AUTO) 53.9 % (45.0-75.0); PLATELET COUNT 250 K/UL (150-450); RED BLOOD COUNT 5.08 M/UL (4.20-5.40); RED CELL DISTRIBUTION WIDTH 12.8 % (11.6-14.8); WHITE BLOOD COUNT 7.4 K/UL (4.8-10.8)
[2017-01-30 08:37] LABS: ANION GAP 19 (5-15); CALCIUM 9.6 mg/dL (8.6-10.2); CARBON DIOXIDE 24 mEQ/L (20-30); CHLORIDE 94 mEQ/L (98-107); CREATININE 1.1 mg/dL (0.5-0.9); GLOMERULAR FILTRATION RATE > 60 mL/min (>60); HEMOLYSIS 5; POTASSIUM 3.9 mEQ/L (3.4-4.9); SODIUM 137 mEQ/L (135-145)
[2017-01-30] MEDS: Lisinopril 2.5mg tab ORAL SCH (08:57)
[2017-01-30] MEDS: Spironolactone 25mg tab ORAL SCH (09:05)
[2017-01-30] MEDS: Lyrica 50mg cap ORAL SCH (09:06)
[2017-01-30 12:00] VITALS: BP 117/63
[2017-01-30 16:00] VITALS: BP 99/66
[2017-01-30] MEDS: Xarelto 10mg tab ORAL SCH (16:06)
--- NOTE | 2017-01-30 17:01 | Cardiac Electrophysiology PN ---
Assessment/Plan Assessment/Plan 1. Exacerbation of congestive heart failure. BNP in the 700 range. Her echocardiogram on 01/01/2017 shows ejection fraction of only 25%. Continue IV 40 Lasix bid, Coreg 3.125 mg b.i.d., lisinopril 5 mg daily, Aldactone 25 mg daily, and digoxin. 2. Chest pain due to congestive heart failure. Ruled out for myocardial infarction. 3. Status post [employer] defibrillator implantation and most recent generator change in November 2015. Nl Fx. 4. Status post atrioventricular del reentrant tachycardia ablation in 2009. 5. Status post atrial flutter ablation in 2012. 6. History of atrial tachycardia ablation in 2014. 7. History of new atrial lead placement in February 2015 for atrial lead fracture. 8. Pulmonary embolus and leg clots, on Xarelto. ROBERTO RN Subjective Subjective Comfortable in NAD. No arrhythmias omn tele. V Paced. Objective Last 24 Hour Vital Signs Date Time Temp Pulse Resp B/P Pulse Ox O2 Delivery O2 Flow Rate FiO2 01/30/17 16:00 93 18 99/66 94 Room Air 01/30/17 12:00 56 18 117/63 98 Room Air 01/30/17 12:00 71 01/30/17 09:05 69 01/30/17 09:03 69 16 98 Room Air 21 01/30/17 09:03 68 16 98 Room Air 21 01/30/17 08:57 98/61 01/30/17 08:56 77 98/61 01/30/17 08:00 76 01/30/17 08:00 77 19 98/61 99 Room Air 01/30/17 04:00 72 01/30/17 04:00 97.7 58 20 99/55 99 Room Air 01/30/17 00:00 69 01/30/17 00:00 97.8 58 20 98/60 99 Room Air 01/29/17 21:00 58 102/64 01/29/17 20:00 60 01/29/17 20:00 97.7 62 20 102/64 100 Room Air 01/29/17 19:08 66 16 98 Room Air 21 01/29/17 19:07 66 16 98 Room Air 21 Intake and Output 01/29/17 01/30/17 19:00 07:00 Intake Total 120 ml Balance 120 ml Intake Oral 120 ml # Voids 4 # Bowel Movements 1 Laboratory Tests Test 01/30/17 06:45 White Blood Count 7.4 K/UL (4.8-10.8) Red Blood Count 5.08 M/UL (4.20-5.40) Hemoglobin 14.2 G/DL (12.0-16.0) Hematocrit 44.4 % (37.0-47.0) Mean Corpuscular Volume 87 FL (80-99) Mean Corpuscular Hemoglobin 27.9 PG (27.0-31.0) Mean Corpuscular Hemoglobin Concent 31.9 G/DL (32.0-36.0) L Red Cell Distribution Width 12.8 % (11.6-14.8) Platelet Count 250 K/UL (150-450) Mean Platelet Volume 9.0 FL (6.5-10.1) Neutrophils (%) (Auto) 53.9 % (45.0-75.0) Lymphocytes (%) (Auto) 38.6 % (20.0-45.0) Monocytes (%) (Auto) 5.2 % (1.0-10.0) Eosinophils (%) (Auto) 0.9 % (0.0-3.0) Basophils (%) (Auto) 1.4 % (0.0-2.0) Sodium Level 137 mEQ/L (135-145) Potassium Level 3.9 mEQ/L (3.4-4.9) Chloride Level 94 mEQ/L (98-107) L Carbon Dioxide Level 24 mEQ/L (20-30) Anion Gap 19 (5-15) H Blood Urea Nitrogen 15 mg/dL (7-23) Creatinine 1.1 mg/dL (0.5-0.9) H Estimat Glomerular Filtration Rate > 60 mL/min (>60) Glucose Level 96 mg/dL (74-106) Calcium Level 9.6 mg/dL (8.6-10.2) Pro-B-Type Natriuretic Peptide 380 pg/mL (0-125) H Objective NECK: Positive JVD. LUNGS: Clear. CARDIOVASCULAR: Regular S1 and S2 with a soft systolic murmur. Defibrillator is in the left subclavian. ABDOMEN: Soft. EXTREMITIES: No pitting edema. WALDEMAR RAY Jan 30, 2017 17:01
--- NOTE | 2017-01-30 18:16 | Internal Med Progress Note ---
Subjective Date of Service: Jan 30, 2017 Physician Name Kristal Wei Attending Physician Saurav Morrison MD Current Medications Medications (Trade) Dose Ordered Sig/Megan Route PRN Reason Start Time Stop Time Status Last Admin Dose Admin Acetaminophen/ Hydrocodone Bitart ([place] 5/325) 1 tab Q6H PRN ORAL Moderate Pain (Pain Scale 4-6) 01/28/17 13:00 02/04/17 12:59 01/29/17 20:51 Aripiprazole (Abilify) 30 mg QHS ORAL 01/28/17 21:00 02/27/17 20:59 01/28/17 20:45 Budesonide/ Formoterol Fumarate (Symbicort 160/ 4.5) 2 puff Q12HR INH 01/28/17 21:00 02/27/17 20:59 01/30/17 09:03 Carvedilol (Coreg) 3.125 mg Q12HR ORAL 01/28/17 21:00 02/27/17 20:59 01/29/17 09:28 Cyclobenzaprine HCl (Flexeril) 10 mg TIDPRN PRN ORAL Muscle Spasm 01/28/17 14:15 02/27/17 14:14 Digoxin (Lanoxin) 0.25 mg DAILY ORAL 01/29/17 09:00 02/28/17 08:59 01/30/17 09:05 Divalproex Sodium (Depakote) 1,000 mg BEDTIME ORAL 01/28/17 21:00 02/27/17 20:59 01/29/17 20:43 Escitalopram Oxalate (Lexapro) 10 mg DAILY ORAL 01/29/17 09:00 02/28/17 08:59 01/30/17 09:05 Furosemide (Lasix) 40 mg EVERY 12 HOURS IV 01/28/17 21:00 02/27/17 20:59 01/30/17 09:06 Lisinopril (Zestril) 5 mg DAILY ORAL 01/29/17 09:00 02/28/17 08:59 01/29/17 09:27 Lorazepam (Ativan) 1 mg BEDTIME ORAL 01/28/17 21:00 02/04/17 20:59 01/29/17 20:43 Nitroglycerin (Ntg) 0.4 mg Q5M PRN SL Per rx protocol 01/28/17 14:15 02/27/17 14:14 Ondansetron HCl (Zofran) 4 mg Q4H PRN IVP Nausea & Vomiting 01/30/17 10:15 03/01/17 10:14 01/30/17 10:09 Pregabalin (Lyrica) 100 mg DAILY ORAL 01/29/17 09:00 02/28/17 08:59 01/30/17 09:06 Rivaroxaban (Xarelto) 20 mg QPM ORAL 01/28/17 18:00 02/27/17 17:59 01/30/17 16:06 Spironolactone (Aldactone) 25 mg DAILY ORAL 01/29/17 09:00 02/28/17 08:59 01/30/17 09:05 Temazepam (Restoril) 15 mg BEDTIME PRN ORAL SLEEP 01/28/17 14:17 02/04/17 14:14 Allergies: Coded Allergies: AMOXICILLIN (Verified Allergy, Mild, SWELLING, 04/11/10) EGG (Verified Allergy, Mild, RASH, 06/08/10) PENICILLINS (Verified Allergy, Mild, RASH, 04/11/10) ROS Limited/Unobtainable: No Constitutional: Reports: no symptoms HEENT: Reports: no symptoms Cardiovascular: Reports: no symptoms Respiratory: Reports: shortness of breath Gastrointestinal/Abdominal: Reports: no symptoms Genitourinary: Reports: no symptoms Neurologic/Psychiatric: Reports: no symptoms Subjective 46 YO F admitted with chest pain and shortness of breath. Now CHF. Cover for Int Valentin-Dr Morrisno. Patient requesting to leave "I got some tragic news I have to take care of." Objective Last Vital Signs Date Time Temp Pulse Resp B/P Pulse Ox O2 Delivery O2 Flow Rate FiO2 01/30/17 16:00 75 01/30/17 16:00 18 99/66 94 Room Air 01/30/17 09:03 21 01/30/17 04:00 97.7 Laboratory Tests Test 01/30/17 06:45 White Blood Count 7.4 K/UL (4.8-10.8) Red Blood Count 5.08 M/UL (4.20-5.40) Hemoglobin 14.2 G/DL (12.0-16.0) Hematocrit 44.4 % (37.0-47.0) Mean Corpuscular Volume 87 FL (80-99) Mean Corpuscular Hemoglobin 27.9 PG (27.0-31.0) Mean Corpuscular Hemoglobin Concent 31.9 G/DL (32.0-36.0) L Red Cell Distribution Width 12.8 % (11.6-14.8) Platelet Count 250 K/UL (150-450) Mean Platelet Volume 9.0 FL (6.5-10.1) Neutrophils (%) (Auto) 53.9 % (45.0-75.0) Lymphocytes (%) (Auto) 38.6 % (20.0-45.0) Monocytes (%) (Auto) 5.2 % (1.0-10.0) Eosinophils (%) (Auto) 0.9 % (0.0-3.0) Basophils (%) (Auto) 1.4 % (0.0-2.0) Sodium Level 137 mEQ/L (135-145) Potassium Level 3.9 mEQ/L (3.4-4.9) Chloride Level 94 mEQ/L (98-107) L Carbon Dioxide Level 24 mEQ/L (20-30) Anion Gap 19 (5-15) H Blood Urea Nitrogen 15 mg/dL (7-23) Creatinine 1.1 mg/dL (0.5-0.9) H Estimat Glomerular Filtration Rate > 60 mL/min (>60) Glucose Level 96 mg/dL (74-106) Calcium Level 9.6 mg/dL (8.6-10.2) Pro-B-Type Natriuretic Peptide 380 pg/mL (0-125) H Intake and Output 01/29/17 01/30/17 19:00 07:00 Intake Total 120 ml Balance 120 ml Intake Oral 120 ml # Voids 4 # Bowel Movements 1 Objective General: alert, cooperative, no distress, appears stated age Head: normocephalic, without obvious abnormality, atraumatic Eyes: conjunctivae/corneas clear. PERRL, EOM's intact Throat: lips, mucosa, and tongue normal. MMM Neck: supple, symmetrical, trachea midline, and no JVD Lungs: crackles bilat bases, otherwise, clear to auscultation bilaterally Heart: regular rate and rhythm, S1, S2 normal, no murmur, click, rub or gallop Abdomen: soft, non-tender, non-distended, bowel sounds normal; no masses or organomegaly Extremities: extremities normal, atraumatic, no cyanosis or edema Pulses: 2+ and symmetric Skin: skin color, texture, turgor normal; no rashes or lesions Neurologic: grossly normal, no focal deficits Assessment/Plan Problem List: (1) SOB (shortness of breath) Assessment & Plan: Due to CHF (2) CHF (congestive heart failure) Assessment & Plan: BNP 700. See cardiology note. (3) Chest Pain Assessment & Plan: Due to CHF. Ruled out for Acute [place]-see cardiology note (4) Hypothyroidism (5) Pulmonary embolism Assessment & Plan: Cont xarelto (6) DVT (deep venous thrombosis) Assessment & Plan: Cont xarelto (7) AICD (automatic cardioverter/defibrillator) present (8) Atrial fibrillation Assessment & Plan: S/P ablation. See cardiology note. (9) Cardiomyopathy (10) Hypertension Assessment/Plan Discharge home today. F/U Dr Morrison in 1 week KRISTAL WEI Jan 30, 2017 18:16
--- NOTE | 2017-01-31 14:04 | Discharge Summary ---
Discharge Summary Hospital Course Date of Admission Jan 28, 2017 at 10:36 Date of Discharge Jan 30, 2017 at 18:55 Admitting Diagnosis CHF EXACEBRATION HPI Kim Judd is a 46 year old female who was admitted on Jan 28, 2017 at 10: 36 for Congestive Heart Failure Exacerbation Hospital Course dc summary#[id number] Discharge Medications Continued Medications: Aripiprazole* (Abilify*) 30 Mg Tablet 30 MG ORAL QHS, TAB Budesonide/Formoterol Fumarate (Symbicort 160-4.5 Mcg Inhaler) 10.2 Gm Hfa.aer.ad 1 PUFF IH, #1 INH 0 Refills Carvedilol (Coreg) 3.125 Mg Tab 3.125 MG ORAL Q12H Take 1 tablet by mouth every 12 hours. Cyclobenzaprine Hcl* (Flexeril*) 10 Mg Tablet 10 MG ORAL TIDPRN PRN for Muscle Spasm, #1 TAB Digoxin* (Digoxin*) 125 Mcg Tablet 250 MCG ORAL DAILY, TAB Divalproex Sodium (Depakote) 500 Mg Tabec 1000 MG ORAL BEDTIME, TAB Escitalopram Oxalate* (Lexapro*) 10 Mg Tablet 10 MG ORAL DAILY, TAB Take 1 tablet by mouth every day. Lisinopril* (Lisinopril*) 10 Mg Tablet 5 MG ORAL DAILY, TAB Take 1 tablet by mouth daily. Lorazepam* (Ativan*) 1 Mg Tablet 1 MG ORAL BEDTIME, TAB Nitroglycerin (Nitrostat) 0.4 Mg Tab.subl 0.4 MG SL Q5M X3 DOSES PRN for Per rx protocol, #25 TAB 0 Refills Pregabalin (Lyrica) 50 Mg Cap 100 MG ORAL DAILY, CAP Rivaroxaban (Xarelto*) 10 Mg Tablet 20 MG ORAL DAILY, #30 TAB 0 Refills Spironolactone (Aldactone) 50 Mg Tab 25 MG ORAL DAILY, #30 TAB Temazepam (Temazepam*) 15 Mg Capsule 15 MG ORAL BEDTIME PRN for Per rx protocol, #30 CAP 0 Refills Discontinued Medications: Hydrocodone/Acetaminophen 5-325* (Hydrocodone/Acetaminophen 5-325*) 1 Each Tablet 1 TAB ORAL Q6H PRN for For Pain, #20 TAB 0 Refills Discharge Condition Upon Discharge: stable Discharge Disposition Patient was discharged to Home (01) Discharge Diagnoses: Discharge Instructions Discharge Instructions Special Instructions I have been assigned to complete a D/C Summary on this account. I was not involved in the patient management Saray Schulte NP (Vanchtein) Jan 31, 2017 14:04
--- NOTE | 2017-02-01 03:45 | Discharge Summary 2 SIG ---
DATE OF ADMISSION: 01/28/2017 DATE OF DISCHARGE: 01/30/2017 REASON FOR ADMISSION: The patient is a 46-year-old female with a history of chronic obstructive pulmonary disease and congestive heart failure, presented to the emergency room with complaint of chest pressure and shortness of breath for the past two days. The patient reported history of congestive heart failure and chronic obstructive pulmonary disease. She reported that her symptoms are similar as previous congestive heart failure exacerbation. She denied recent illness. Denied fever or chills. No other complaints. The patient has a history of extensive cardiac disease and automatic implanted cardioverter-defibrillator. Workup in the emergency room revealed negative troponin, ProBNP was 738, D-dimer was 536, EKG revealed pacing rhythm, no acute changes, heart rate in 50, chest x-ray revealed no acute cardiopulmonary pathology. The patient admitted to the telemetry floor for further management. ADMITTING DIAGNOSES: Include: 1. Chest pain. 2. Congestive heart failure exacerbation. HOSPITAL STAY: The patient is admitted to telemetry floor. Cardiac consult was requested. According to jet dyeing machine tender, the patient's chest pain likely secondary to congestive heart failure exacerbation. Serial troponins were negative. EKG revealed no acute ischemic changes. The patient was ruled out for acute myocardial infarction. Home medication were resumed including beta-thais, CHELSEA inhibitor, digoxin, and Aldactone. Diuresis with Lasix intravenous. Renal parameters, electrolytes were closely monitored. Intake and output were closely monitored. Nephrotoxics were avoided. The patient's last echocardiogram revealed ejection fraction of 25% only. The patient with automatic implanted cardioverter-defibrillator, recent interrogation revealed normal functioning. The patient is well known to jet dyeing machine tender with multiple procedure, cardiophysiologic procedures, which were performed on this patient. After treatment with diuretic, the patient clinically improved. Supplemental oxygen and pulmonary toilet provided as needed. Blood pressure was stable, pulse oximetry stable on room air. The patient was stable for discharge. DISCHARGE DIAGNOSES: 1. Acute on chronic congestive heart failure exacerbation. 2. Chest pain, secondary to congestive heart failure exacerbation. 3. Cardiomyopathy. 4. Chronic obstructive pulmonary disease, no evidence of exacerbation. 5. History of pulmonary embolism and deep vein thrombosis. The patient is on Xarelto. 6. Automatic implanted cardioverter-defibrillator. 7. Status post atrioventricular del reentrant tachycardia ablation in 2009. 8. Status post atrial flutter ablation in 2012. 9. History of atrial tachycardia ablation in 2014. 10. History of new atrial lead placement in February 2015 for atrial lead fracture. DISCHARGE MEDICATIONS: See medication reconciliation list. DISCHARGE INSTRUCTIONS: The patient discharged home. Follow up with the primary medical doctor and jet dyeing machine tender. Saurav Morrison M.D. I have been assigned to dictate discharge summary on this account and I was not involved in the patient's management. Saray [facility] NHaleighPHaleigh DR: KAYODE JOB#: [id number] CC:
--- NOTE | 2017-02-01 18:18 | Cardiology Report ---
APPROVED REPORT EKG Measurement Heart [id number] sinus julius v pacing
== END 2017-01-30 18:55 | disposition home or self-care (01) | DRG 292 ==
LOC: EMR 09:36 → 2E 10:36 → EDBEDREQ 10:44 → 2E 01-29 23:37
DX: I50.9 Heart failure, unspecified (principal); F31.89 Other bipolar disorder; I42.9 Cardiomyopathy, unspecified; Z79.01 Long term (current) use of anticoagulants; J44.9 Chronic obstructive pulmonary disease, unspecified; I10 Essential (primary) hypertension; E03.9 Hypothyroidism, unspecified; Z95.810 Presence of automatic (implantable) cardiac defibrillator; I48.91 Unspecified atrial fibrillation; Z86.711 Personal history of pulmonary embolism; Z86.718 Personal history of other venous thrombosis and embolism; F41.9 Anxiety disorder, unspecified; Z88.0 Allergy status to penicillin; R06.02 Shortness of breath; I25.10 Atherosclerotic heart disease of native coronary artery without angina pectoris; Z88.1 Allergy status to other antibiotic agents; R07.89 Other chest pain
CPT/HCPCS: 36415; 71010; 80048; 80053; 80162; 82550; 82553; 83880; 84484; 85025; 85379; 85610; 85730; 93005; 94640; J2405

== ENCOUNTER 2017-06-12 08:23 | Inpatient (IN) | payer MEDICARE, OTHER ==
[~2017-06-12] VITALS: Ht 172.7 cm; Wt 59.0 kg
[2017-06-12 08:36] VITALS: BP 128/86
[2017-06-12] MEDS ORDERED: Aspirin Baby 81mg ORAL ONE (08:45)
[2017-06-12] MEDS ORDERED: Morphine Sulfate 4mg/ml Inj IVP ONE (08:45)
--- NOTE | 2017-06-12 08:45 | Emergency Room Report ---
History of Present Illness General Chief Complaint: Chest Pain Source: Patient Present Illness HPI The patient presents with 4 days of chest pain. It's somewhat positional and pleuritic. Also she's had dyspnea on exertion. 2 weeks ago she saw her doctor and they did an echocardiogram that revealed a leaky heart valves. There was no change in her medication at that time. She has an implanted defibrillator. She denies any palpitations. The chest pain radiates somewhat to her shoulders. She had a fever yesterday that she broke with Tylenol. She is out of [place]. The pain is 6/10, constant and worsened with breathing and position. She denies any swelling in her calves. She is under stress at this time caring for grandchildren. She smoked 2 cigarettes over the course of the last 2 days. It made her feel feel worse. No NVD, dysuria, abdominal pain, joint pain. H/O Bipolar disorder and agitated, but not suicidal. No bleeding. Allergies: Coded Allergies: AMOXICILLIN (Verified Allergy, Mild, SWELLING, 04/11/10) EGG (Verified Allergy, Mild, RASH, 06/08/10) PENICILLINS (Verified Allergy, Mild, RASH, 04/11/10) Patient History Past Medical History: see triage record Social History: Reports: smoking, drug use Social History Narrative caring for grandchildren Now: No Reviewed Nursing Documentation: PMH: Agreed, PSxH: Agreed Nursing Documentation-PMH Past Medical History: No History, Except For Hx Cardiac Problems: Yes Hx Hypertension: Yes Hx Pacemaker: Yes - on left chest Hx Asthma: No Hx COPD: Yes Hx Diabetes: No Hx Cancer: No Hx Gastrointestinal Problems: No Hx Dialysis: No Hx Neurological Problems: No Hx Cerebrovascular Accident: Yes - 2012 Hx Transient Ischemic Attacks: Yes Hx Dementia: No Hx Alzheimer's Disease: No Hx Parkinson's Disease: No Hx Meningitis: No Hx Encephalitis: No Hx Seizures: No Hx Epilepsy: No Hx Multiple Sclerosis: No Hx Cerebral Palsy: No Hx Amyotrophic Lat Sclerosis: No Hx Guillian-Sunshine Syndrome: No Hx Paralysis: Yes Hx Peripheral Neuropathy: No Hx Spinal Cord Injury: No Hx Head Trauma: No Hx Traumatic Brain Injury: No Hx Memory Loss: No Hx Concentration Difficulty: No Hx Speech Problem: No Hx Tremors: No Hx Vertigo: No Hx Dizziness: No Hx Syncope: No Hx Headaches: Yes - Migraines Hx Aphasia: No Hx Dysphasia: No Hx Numbness: No Hx Weakness: No Hx Fatigue: No Hx Neurologic Surgery: No Hx Brain Shunt: No Review of Systems All Other Systems: negative except mentioned in HPI Physical Exam Vital Signs Date Time Temp Pulse Resp B/P (MAP) Pulse Ox O2 Delivery O2 Flow Rate FiO2 06/12/17 08:26 98.8 83 19 130/87 100 Room Air Sp02 EP Interpretation: reviewed, normal General Appearance: well appearing, no apparent distress, GCS 15 Head: normocephalic Eyes: bilateral eye normal inspection, bilateral eye PERRL ENT: moist mucus membranes Neck: supple Respiratory: lungs clear, normal breath sounds, other - pacemaker L chest - some lateral chest wall tenderness Cardiovascular #1: regular rate, rhythm Cardiovascular #2: 2+ radial (R) Gastrointestinal: normal inspection, normal bowel sounds, non tender, no mass, non-distended Musculoskeletal: back normal, gait/station normal, normal range of motion Neurologic: alert, oriented x3, grossly normal Psychiatric: other - pressured and argumentative with staff Skin: normal inspection, warm/dry Medical Decision Making Diagnostic Impression: Primary Impression: Chest pain Qualified Codes: R07.9 - Chest pain, unspecified Additional Impressions: Cocaine abuse Bipolar disorder Qualified Codes: F31.9 - Bipolar disorder, unspecified ER Course Patient with chest pain and h/o chf. DDx: AMI, ACS, costochondritis, PE ( though exam and VS against), PNA, bronchitis, pneumothorax amongst others. Complicated patient with co-morbidities. Emergent evaluation with EKG, CXR, labs. Treatment with morphine and zofran. Hold off on hydration as patient with h/o CHF. With alligation of leaky valves, needs echo when able. Patient agitated - ativan ordered. EKG without acute injury, though mostly paced. CXR with pulm HTN and pacer. Labs with normal WBC, lytes, neg troponin, elevated BNP. + tox for cocaine and THC. Patient somewhat improved but needing cardiac observation and r/o injury. Patient admitted telemetry Dr. Morrison. Laboratory Tests Test 06/12/17 08:56 06/12/17 10:45 White Blood Count 7.0 K/UL (4.8-10.8) Red Blood Count 4.61 M/UL (4.20-5.40) Hemoglobin 13.2 G/DL (12.0-16.0) Hematocrit 42.2 % (37.0-47.0) Mean Corpuscular Volume 92 FL (80-99) Mean Corpuscular Hemoglobin 28.6 PG (27.0-31.0) Mean Corpuscular Hemoglobin Concent 31.2 G/DL (32.0-36.0) L Red Cell Distribution Width 12.2 % (11.6-14.8) Platelet Count 198 K/UL (150-450) Mean Platelet Volume 9.8 FL (6.5-10.1) Neutrophils (%) (Auto) 63.4 % (45.0-75.0) Lymphocytes (%) (Auto) 26.5 % (20.0-45.0) Monocytes (%) (Auto) 6.8 % (1.0-10.0) Eosinophils (%) (Auto) 2.4 % (0.0-3.0) Basophils (%) (Auto) 1.0 % (0.0-2.0) Prothrombin Time 9.8 SEC (9.30-11.50) Prothrombin Time INR 0.9 (0.9-1.1) PTT 24 SEC (23-33) Sodium Level 144 MMOL/L (136-145) Potassium Level 4.0 MMOL/L (3.5-5.1) Chloride Level 109 MMOL/L (98-107) H Carbon Dioxide Level 28 MMOL/L (21-32) Anion Gap 7 mmol/L (5-15) Blood Urea Nitrogen 5 mg/dL (7-18) L Creatinine 0.9 MG/DL (0.55-1.30) Estimate Glomerular Filtration Rate > 60 mL/min (>60) Glucose Level 98 MG/DL (74-106) Calcium Level 9.1 MG/DL (8.5-10.1) Total Bilirubin 0.7 MG/DL (0.2-1.0) Aspartate Amino Transferase (AST) 23 U/L (15-37) Alanine Aminotransferase (ALT) 33 U/L (12-78) Alkaline Phosphatase 114 U/L (46-116) Total Creatine Kinase 111 U/L (26-308) Troponin I 0.009 ng/mL (0.000-0.056) Pro-B-Type Natriuretic Peptide 997 pg/mL (0-125) H Total Protein 6.6 G/DL (6.4-8.2) Albumin 3.2 G/DL (3.4-5.0) L Globulin 3.4 g/dL Albumin/Globulin Ratio 0.9 (1.0-2.7) L Urine Color Pale yellow Urine Appearance Clear Urine pH 6 (4.5-8.0) Urine Specific [place] 1.010 (1.005-1.035) Urine Protein Negative (NEGATIVE) Urine Glucose (UA) Negative (NEGATIVE) Urine Ketones Negative (NEGATIVE) Urine Occult Blood Negative (NEGATIVE) Urine Nitrite Negative (NEGATIVE) Urine Bilirubin Negative (NEGATIVE) Urine Urobilinogen Normal MG/DL (0.0-1.0) Urine Leukocyte Esterase Negative (NEGATIVE) Urine Opiates Screen Negative (NEGATIVE) Urine Barbiturates Screen Negative (NEGATIVE) Phencyclidine (PCP) Screen Negative (NEGATIVE) Urine Amphetamines Screen Negative (NEGATIVE) Urine Benzodiazepines Screen Negative (NEGATIVE) Urine Cocaine Screen Positive (NEGATIVE) H Urine Marijuana (THC) Screen Positive (NEGATIVE) H EKG Diagnostic Results Rate: normal Rhythm: other - paced ST Segments: no acute changes Rhythm Strip Diag. Results EP Interpretation: yes Rhythm: no PVC's, other - paced, rate 77 Chest X-Ray Diagnostic Results Chest X-Ray Diagnostic Results : Chest X-Ray Ordered: Yes # of Views/Limited/Complete: 1 View Indication: Chest Pain EP Interpretation: Yes Interpretation: no consolidation, no effusion, no pneumothorax, other - pacer Impression: No acute disease Electronically Signed by: Electronically signed by Jeffery Gomez MD Last Vital Signs Date Time Temp Pulse Resp B/P (MAP) Pulse Ox O2 Delivery O2 Flow Rate FiO2 06/13/17 00:11 69 06/13/17 00:00 97.0 17 101/52 99 Room Air Status: improved Disposition: ADMITTED INPATIENT Condition: Serious Jeffery Gomez M.D. Jun 12, 2017 08:45
[2017-06-12 09:46] LABS: EOSINOPHILS % (AUTO) 2.4 % (0.0-3.0); LYMPHOCYTES % (AUTO) 26.5 % (20.0-45.0); MEAN CORPUSCULAR HEMOGLOBIN 28.6 PG (27.0-31.0); MEAN CORPUSCULAR HGB CONC 31.2 G/DL (32.0-36.0); MEAN CORPUSCULAR VOLUME 92 FL (80-99); MEAN PLATELET VOLUME 9.8 FL (6.5-10.1); MONOCYTES % (AUTO) 6.8 % (1.0-10.0); NEUTROPHILS % (AUTO) 63.4 % (45.0-75.0); PLATELET COUNT 198 K/UL (150-450); RED BLOOD COUNT 4.61 M/UL (4.20-5.40); RED CELL DISTRIBUTION WIDTH 12.2 % (11.6-14.8)
[2017-06-12 09:52] LABS: INR 0.9 (0.9-1.1); PROTHROMBIN TIME 9.8 SEC (9.30-11.50)
[2017-06-12 10:32] VITALS: BP 109/80
[2017-06-12 10:44] LABS: ANION GAP 7 mmol/L (5-15); CARBON DIOXIDE 28 MMOL/L (21-32); CHLORIDE 109 MMOL/L (98-107); CREATININE 0.9 MG/DL (0.55-1.30); GLOMERULAR FILTRATION RATE > 60 mL/min (>60); SODIUM 144 MMOL/L (136-145)
[2017-06-12 10:45] LABS: ALANINE AMINOTRANSFERASE 33 U/L (12-78); ALBUMIN/GLOBULIN RATIO 0.9 (1.0-2.7); ASPARTATE AMINO TRANSFERASE 23 U/L (15-37); CALCIUM 9.1 MG/DL (8.5-10.1); TOTAL PROTEIN 6.6 G/DL (6.4-8.2)
[2017-06-12] MEDS ORDERED: LORazepam Inj 2mg/ml 1ml IV ONE (11:00)
[2017-06-12 11:07] LABS: APPEARANCE,URINE CLEAR; KETONES,URINE NEGATIVE (NEGATIVE); LEUKOCYTE ESTERASE ,URINE NEGATIVE (NEGATIVE); NITRITE,URINE NEGATIVE (NEGATIVE); PH,URINE 6 (4.5-8.0); PROTEIN,URINE NEGATIVE (NEGATIVE); UROBILINOGEN,URINE NORMAL MG/DL (0.0-1.0)
--- NOTE | 2017-06-12 11:36 | Diagnostic Imaging Report ---
Indication: Chest pain Comparison: 01/28/17 A single view chest radiograph was obtained. Findings: Heart size is prominent. Bones are unremarkable. There is a pacemaker on the left. Lungs are clear. Impression: No acute disease
[2017-06-12 13:30] VITALS: BP 123/83
--- NOTE | 2017-06-12 13:34 | Cardiac Electrophysiology PN ---
Subjective Subjective 1. Exacerbation of congestive heart failure. BNP in the 700 range. Her echocardiogram on 01/01/2017 shows ejection fraction of only 25%. Continue IV 40 Lasix bid, Coreg 3.125 mg b.i.d., lisinopril 5 mg daily, Aldactone 25 mg daily, and digoxin. 2. Chest pain due to congestive heart failure. Ruled out for myocardial infarction. 3. Status post [employer] defibrillator implantation and most recent generator change in November 2015. Nl Fx. 4. Status post atrioventricular del reentrant tachycardia ablation in 2009. 5. Status post atrial flutter ablation in 2012. 6. History of atrial tachycardia ablation in 2014. 7. History of new atrial lead placement in February 2015 for atrial lead fracture. 8. Pulmonary embolus and leg clots, on Xarelto. 9. Cocaine use Dictated [id number] Objective Last 24 Hour Vital Signs Date Time Temp Pulse Resp B/P (MAP) Pulse Ox O2 Delivery O2 Flow Rate FiO2 06/12/17 10:32 98.6 78 14 109/80 95 Room Air 06/12/17 09:22 98.8 06/12/17 08:36 75 19 Room Air 06/12/17 08:36 98.8 75 16 128/86 97 Room Air 06/12/17 08:26 98.8 83 19 130/87 100 Room Air Laboratory Tests Test 06/12/17 08:56 06/12/17 10:45 White Blood Count 7.0 K/UL (4.8-10.8) Red Blood Count 4.61 M/UL (4.20-5.40) Hemoglobin 13.2 G/DL (12.0-16.0) Hematocrit 42.2 % (37.0-47.0) Mean Corpuscular Volume 92 FL (80-99) Mean Corpuscular Hemoglobin 28.6 PG (27.0-31.0) Mean Corpuscular Hemoglobin Concent 31.2 G/DL (32.0-36.0) L Red Cell Distribution Width 12.2 % (11.6-14.8) Platelet Count 198 K/UL (150-450) Mean Platelet Volume 9.8 FL (6.5-10.1) Neutrophils (%) (Auto) 63.4 % (45.0-75.0) Lymphocytes (%) (Auto) 26.5 % (20.0-45.0) Monocytes (%) (Auto) 6.8 % (1.0-10.0) Eosinophils (%) (Auto) 2.4 % (0.0-3.0) Basophils (%) (Auto) 1.0 % (0.0-2.0) Prothrombin Time 9.8 SEC (9.30-11.50) Prothromb Time International Ratio 0.9 (0.9-1.1) Activated Partial Thromboplast Time 24 SEC (23-33) Sodium Level 144 MMOL/L (136-145) Potassium Level 4.0 MMOL/L (3.5-5.1) Chloride Level 109 MMOL/L (98-107) H Carbon Dioxide Level 28 MMOL/L (21-32) Anion Gap 7 mmol/L (5-15) Blood Urea Nitrogen 5 mg/dL (7-18) L Creatinine 0.9 MG/DL (0.55-1.30) Estimat Glomerular Filtration Rate > 60 mL/min (>60) Glucose Level 98 MG/DL (74-106) Calcium Level 9.1 MG/DL (8.5-10.1) Total Bilirubin 0.7 MG/DL (0.2-1.0) Aspartate Amino Transf (AST/SGOT) 23 U/L (15-37) Alanine Aminotransferase (ALT/SGPT) 33 U/L (12-78) Alkaline Phosphatase 114 U/L (46-116) Total Creatine Kinase 111 U/L (26-308) Troponin I 0.009 ng/mL (0.000-0.056) Pro-B-Type Natriuretic Peptide 997 pg/mL (0-125) H Total Protein 6.6 G/DL (6.4-8.2) Albumin 3.2 G/DL (3.4-5.0) L Globulin 3.4 g/dL Albumin/Globulin Ratio 0.9 (1.0-2.7) L Urine Color Pale yellow Urine Appearance Clear Urine pH 6 (4.5-8.0) Urine Specific [place] 1.010 (1.005-1.035) Urine Protein Negative (NEGATIVE) Urine Glucose (UA) Negative (NEGATIVE) Urine Ketones Negative (NEGATIVE) Urine Occult Blood Negative (NEGATIVE) Urine Nitrite Negative (NEGATIVE) Urine Bilirubin Negative (NEGATIVE) Urine Urobilinogen Normal MG/DL (0.0-1.0) Urine Leukocyte Esterase Negative (NEGATIVE) Urine Opiates Screen Negative (NEGATIVE) Urine Barbiturates Screen Negative (NEGATIVE) Phencyclidine (PCP) Screen Negative (NEGATIVE) Urine Amphetamines Screen Negative (NEGATIVE) Urine Benzodiazepines Screen Negative (NEGATIVE) Urine Cocaine Screen Positive (NEGATIVE) H Urine Marijuana (THC) Screen Positive (NEGATIVE) H WALDEMAR RAY Jun 12, 2017 13:34
[2017-06-12 13:40] VITALS: BP 110/72
[2017-06-12] MEDS ORDERED: Nitroglycerin Subl 0.4mg tab SL PRN (14:45)
[2017-06-12] MEDS ORDERED: Cyclobenzaprine 10mg Tab ORAL PRN (14:45)
[2017-06-12 15:56] VITALS: BP 118/72
[2017-06-12] MEDS: Xarelto 10mg tab ORAL SCH (16:45)
[2017-06-12] MEDS: Norco 5mg/325mg tab ORAL PRN (16:47)
--- NOTE | 2017-06-12 16:57 | Cardiology Report ---
APPROVED REPORT EXAM: Two-dimensional and M-mode echocardiogram with Doppler and color Doppler. INDICATION Congestive Heart Failure M-Mode DIMENSIONS IVSd1.0 (0.7-1.1cm)Left Atrium (MM)4.2 (1.6-4.0cm) LVDd6.8 (3.5-5.6cm)Aortic Root2.7 (2.0-3.7cm) PWd0.8 (0.7-1.1cm)Aortic Cusp Exc.2.1 (1.5-2.0cm) LVDs6.1 (2.5-4.0cm) PWs1.3 cm Moderate left ventricular enlargement. Global left ventricular hypokinesis. Left ventricular ejection fraction estimated to be 15-20 %. No evidence of left ventricular hypertrophy. No evidence of pericardial effusion. All other cardiac chamber sizes are within normal limits. Focal aortic valve sclerosis with adequate cusp excursion. Mildly thickened mitral valve leaflets with normal excursion. Mild mitral annulus and aortic root calcification. Normal pulmonic valve structure. Normal tricuspid valve structure. IVC dilated at 2.5 cm with physiologic collapse, estimated RAP is 10 mmHg. Probable pacemaker wire present in the right chambers. Echo density in the apical region, cannot rule out apical thrombus. A color flow and spectral Doppler study was performed and revealed: Trace aortic regurgitation. Mild mitral regurgitation. Left ventricular diastolic function could not be obtained due to arrhythmia. Mild, Moderate, Severe, tricuspid regurgitation. Tricuspid systolic velocities suggests peak right ventricular systolic pressure of 14 mmHg. Mild pulmonic regurgitation present.
--- NOTE | 2017-06-12 17:22 | History & Physical ---
History and Physical History & Physicial Dictated for Int Med-Dr Morrison no. [id number]. KRISTAL WEI Jun 12, 2017 17:22
[2017-06-12 20:00] VITALS: BP 119/79
[2017-06-12] MEDS: Depakote 500mg tab ORAL SCH (22:53)
[2017-06-12] MEDS: LORazepam 1mg tab ORAL SCH (22:53)
[2017-06-13] VITALS: BP 101/52
--- NOTE | 2017-06-13 03:00 | History and Physical Report ---
DATE OF ADMISSION: 06/12/2017 CHIEF COMPLAINT: The patient is a 46-year-old female who presents with chief complaint of chest pain. HISTORY OF PRESENT ILLNESS: Began four days prior to admission. The patient began to experience left-sided chest pain. The patient took Tylenol without relief. The patient has a history of congestive heart failure with AICD placement. The patient presented to [facility] emergency room. The patient was admitted for chest pain to rule out acute coronary syndrome. PAST MEDICAL HISTORY: Significant for: 1. Congestive heart failure. 2. Atrial fibrillation. 3. Cardiomyopathy. 4. Hypothyroidism. 5. Hypertension. 6. Bipolar depression. 7. Anxiety. 8. Major depression. PAST SURGICAL HISTORY: Significant for AICD placement x3, the last was in [address] Ulysses Ojeda. CURRENT MEDICATIONS: 1. Abilify 30 mg one tablet p.o. at bedtime. 2. Symbicort 160/4.5 one puff daily. 3. Coreg 3.125 mg one tablet p.o. twice daily. 4. Flexeril 10 mg one tablet p.o. 3 times daily p.r.n. 5. Digoxin 0.25 mg p.o. daily. 6. Depakote 1000 mg one tablet p.o. at bedtime. 7. Lexapro 10 mg one tablet p.o. daily. 8. Lisinopril 5 mg one tablet p.o. daily. 9. Ativan 1 mg one tablet p.o. at bedtime. 10. Nitrostat 0.4 mg sublingual p.r.n. 11. Lyrica 100 mg one tablet p.o. daily. 12. Xarelto 20 mg one tablet p.o. daily. 13. Spironolactone 25 mg one tablet p.o. daily. 14. Restoril 15 mg one tablet p.o. at bedtime. ALLERGIES: To amoxicillin, penicillin, and eggs. SOCIAL HISTORY: The patient is single and lives with her adult daughter. The patient is disabled. The patient admits to tobacco use of one quarter pack per day. The patient admits to occasional alcohol use. The patient denies other drug abuse. REVIEW OF SYSTEMS: CONSTITUTIONAL: The patient denies weight loss or weight gain. The patient denies fevers or chills. HEENT: The patient denies ear or throat pain. The patient denies headache. CARDIOVASCULAR: The patient complains of chest pain as above. The patient denies palpitations. ABDOMEN: The patient denies nausea, vomiting, diarrhea, or constipation. GENITOURINARY: The patient denies dysuria or increased frequency of urination. NEUROMUSCULAR: The patient denies seizures or generalized weakness. PHYSICAL EXAMINATION: VITAL SIGNS: Temperature 98.6, respirations 14, pulse 78, and blood pressure 109/80. GENERAL: The patient is a well-developed, well-nourished, thin-appearing, female, in no apparent distress. HEENT: Eyes, pupils are equal and responsive to light and accommodation. Extraocular movements are intact. NECK: Supple without lymphadenopathy. CHEST: Lungs are clear to auscultation bilaterally without wheezes or rales. CARDIOVASCULAR: Regular rhythm and rate. S1 and S2 are normal without murmurs, rubs, or gallops. ABDOMEN: Soft, nontender, and nondistended. Positive bowel sounds. No evidence of hepatosplenomegaly. Currently, no rebound or guarding noted. EXTREMITIES: Negative for clubbing, cyanosis, or edema. RECTAL: Refused. GENITAL: Refused. NEUROLOGIC: Cranial nerves II through XII are grossly intact without focal deficits. Motor strength is 5/5 bilaterally. Deep tendon reflexes are 2+ plantar. LABORATORY AND DIAGNOSTIC DATA: WBC 7.0, hemoglobin 13.2, hematocrit 42.2, and platelets 198,000. Sodium 144, potassium 4.0, chloride 109, CO2 28, BUN 5, creatinine 0.9, and glucose 98. Troponin 0.009. A chest x-ray revealed no acute disease. An echocardiogram revealed an ejection fraction of 15% to 20%. ASSESSMENT: This is a 46-year-old female with: 1. Chest pain. 2. Shortness of breath. 3. Acute on chronic congestive heart failure. 4. Atrial fibrillation. 5. Cardiomyopathy. 6. Hypothyroidism. 7. Hypertension. 8. Bipolar depression. 9. Anxiety. 10. Depression. 11. Automatic implanted cardioverter-defibrillator in situ. TREATMENT: 1. Chest pain/congestive heart failure. A Cardiology consultation has been obtained with Dr. Ulysses Ojeda. Ejection fraction is 15% to 20%. We will follow recommendations of Cardiology. 2. Shortness of breath, this is probably secondary to congestive heart failure as above. 3. Atrial fibrillation. Continue Xarelto as above. 4. Cardiomyopathy. 5. Hypothyroidism. Continue Levoxyl as above. 6. Hypertension. Continue Coreg as above. 7. Bipolar depression. Continue Abilify as above. Aron Pope M.D. DR: YASMEEN JOB#: [id number] CC:
[2017-06-13 04:00] VITALS: BP 115/61
[2017-06-13] MEDS: Norco 5mg/325mg tab ORAL PRN ×2 (06:57→13:24)
[2017-06-13 08:34] VITALS: BP 139/82
[2017-06-13 08:54] LABS: BASOPHILS % (AUTO) 1.6 % (0.0-2.0); EOSINOPHILS % (AUTO) 2.8 % (0.0-3.0); LYMPHOCYTES % (AUTO) 36.5 % (20.0-45.0); MEAN CORPUSCULAR HEMOGLOBIN 28.8 PG (27.0-31.0); MEAN CORPUSCULAR HGB CONC 31.4 G/DL (32.0-36.0); MEAN CORPUSCULAR VOLUME 92 FL (80-99); MEAN PLATELET VOLUME 8.8 FL (6.5-10.1); MONOCYTES % (AUTO) 4.7 % (1.0-10.0); NEUTROPHILS % (AUTO) 54.4 % (45.0-75.0); PLATELET COUNT 202 K/UL (150-450); RED BLOOD COUNT 4.88 M/UL (4.20-5.40); RED CELL DISTRIBUTION WIDTH 12.7 % (11.6-14.8); WHITE BLOOD COUNT 5.9 K/UL (4.8-10.8)
[2017-06-13 09:23] LABS: ALANINE AMINOTRANSFERASE 30 U/L (12-78); ALBUMIN/GLOBULIN RATIO 0.9 (1.0-2.7); ANION GAP 4 mmol/L (5-15); ASPARTATE AMINO TRANSFERASE 22 U/L (15-37); CALCIUM 8.8 MG/DL (8.5-10.1); CARBON DIOXIDE 30 MMOL/L (21-32); CHLORIDE 105 MMOL/L (98-107); GLOMERULAR FILTRATION RATE > 60 mL/min (>60); SODIUM 139 MMOL/L (136-145); THYROID STIMULATING HORMONE 1.451 uiU/mL (0.360-3.740); TOTAL PROTEIN 6.7 G/DL (6.4-8.2)
[2017-06-13] MEDS: Lyrica 50mg cap ORAL SCH (09:51)
[2017-06-13] MEDS: Lisinopril 10mg tab ORAL SCH (09:52)
[2017-06-13] MEDS: Spironolactone 25mg tab ORAL SCH (09:53)
[2017-06-13 10:04] LABS: PHOSPHORUS 4.3 MG/DL (2.5-4.9)
--- NOTE | 2017-06-13 10:32 | Consultation ---
DATE OF CONSULTATION: 06/12/2017 CARDIOLOGY CONSULTATION CONSULTING PHYSICIAN: Ulysses Ojeda M.D. REFERRING PHYSICIAN: Saurav Morrison M.D. REASON FOR CONSULTATION: Chest pain in a patient with congestive heart failure. HISTORY OF PRESENT ILLNESS: The patient is a very pleasant 46-year-old lady under my Cardiology care for many years, was just recently in the office as well. The patient has a history of severe cardiomyopathy with ejection fraction only 25% December 2016. The patient also has history of [employer] defibrillator implantation as well as generator change by me in November 2015. 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 The patient also had atrial tachycardia that was ablated 2014. The patient also underwent a new atrial lead placement in February 2015 for atrial lead fracture. The patient has also been on Xarelto for pulmonary embolism and lower extremity DVTs. The patient came to the emergency room for increasing shortness of breath as well as chest pain that was short. The patient last 4 to 5 days. The patient was admitted and a Cardiology consultation was obtained for further evaluation and management. PAST MEDICAL HISTORY: As mentioned above. SOCIAL HISTORY: She lives at home. Occasionally smokes cigarettes street drugs. FAMILY HISTORY: Noncontributory. REVIEW OF SYSTEMS: Review of systems was thoroughly performed and was negative other than what was mentioned in the history of present illness. Thoroughly performed and was negative other than history of present of illness. PHYSICAL EXAMINATION: VITAL SIGNS: Shows blood pressure of 109/80, pulse is 78, respirations 14, and is afebrile. HEAD AND NECK: Shows no JVD. LUNGS: Clear. CARDIOVASCULAR: Shows regular S1 and S2. Defibrillator in left subclavian. ABDOMEN: Soft. EXTREMITIES: Have 1+ pitting edema. LABORATORY AND DIAGNOSTIC DATA: White count of 7, hemoglobin 13.2, hematocrit 42.1, and platelet count of 198,000. Sodium is 144, potassium 4.0, BUN of 5, creatinine 0.9, and glucose of 98. Troponin is negative. BNP is 997. Her urine toxicology was positive for marijuana and cocaine. ASSESSMENT AND PLAN: 1. Chest pain. This could be secondary to the patient's cocaine use. Her urine screen was also was positive for cocaine in December 2016. Strong abstinence is recommended. 2. Exacerbation of congestive heart failure. The patient's ejection fraction 25%. BNP is in the 1000 range. We will repeat the echocardiogram. Resume Lasix 40 mg IV twice a day, digoxin. The patient is on Coreg 3.125 mg twice a day, but will have to be very careful in this patient with cocaine abuse. 3. Status post [employer] defibrillator implantation with generator changed by me in November 2015. 4. 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 5. Status post atrial flutter ablation by me in 2012. 6. Status post atrial tachycardia ablation by me in 2014. 7. Status post new atrial lead placement in February 2015 for atrial lead fracture. 8. pulmonary embolism, lower extremity clot. 9. Substance use with cocaine and cannabinoids. Abstinence was recommended. Thank you very much, Dr. Morrison, for allowing me to participate in the care of this patient. Please do not hesitate to contact me if you have any questions regarding my evaluation. Ulysses Ojeda M.D. DR: LIANA JOB#: [id number] CC:
[2017-06-13 12:11] VITALS: BP 144/76
[2017-06-13 16:20] VITALS: BP 109/65
--- NOTE | 2017-06-13 16:53 | Cardiac Electrophysiology PN ---
Assessment/Plan Assessment/Plan 1. Chest pain. This could be secondary to the patient's cocaine use. Her urine screen was also was positive for cocaine in December 2016. Strong abstinence is recommended. 2. Exacerbation of CHF and EF 25%. BNP is in the 1000 range. On Lasix 40 mg IV twice a day, dig and Coreg 3. Status post [employer] defibrillator implantation with generator changed by me in November 2015. 4. 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 5. Status post atrial flutter ablation by me in 2012. 6. Status post atrial tachycardia ablation by me in 2014. 7. Status post new atrial lead placement in February 2015 for atrial lead fracture. 8. DVT and pulmonary embolism 9. Substance use with cocaine and cannabinoids. Abstinence was recommended. Subjective Subjective Feeling better with iv diuretics. Intermittent V pacing. Objective Last 24 Hour Vital Signs Date Time Temp Pulse Resp B/P (MAP) Pulse Ox O2 Delivery O2 Flow Rate FiO2 06/13/17 12:11 97.3 68 18 144/76 95 Room Air 06/13/17 09:52 139/82 06/13/17 09:50 71 06/13/17 09:50 71 139/82 06/13/17 09:08 71 18 99 Room Air 21 06/13/17 09:05 70 18 99 Room Air 21 06/13/17 08:34 97.3 71 18 139/82 95 Room Air 06/13/17 07:00 69 18 Room Air 06/13/17 04:03 69 06/13/17 04:00 97.7 79 18 115/61 100 Room Air 06/13/17 00:11 69 06/13/17 00:00 97.0 70 17 101/52 99 Room Air 06/12/17 22:52 71 119/79 06/12/17 20:35 73 19 Room Air 06/12/17 20:10 88 06/12/17 20:00 96.1 71 19 119/79 98 Room Air Laboratory Tests Test 06/13/17 08:55 White Blood Count 5.9 K/UL (4.8-10.8) Red Blood Count 4.88 M/UL (4.20-5.40) Hemoglobin 14.1 G/DL (12.0-16.0) Hematocrit 44.8 % (37.0-47.0) Mean Corpuscular Volume 92 FL (80-99) Mean Corpuscular Hemoglobin 28.8 PG (27.0-31.0) Mean Corpuscular Hemoglobin Concent 31.4 G/DL (32.0-36.0) L Red Cell Distribution Width 12.7 % (11.6-14.8) Platelet Count 202 K/UL (150-450) Mean Platelet Volume 8.8 FL (6.5-10.1) Neutrophils (%) (Auto) 54.4 % (45.0-75.0) Lymphocytes (%) (Auto) 36.5 % (20.0-45.0) Monocytes (%) (Auto) 4.7 % (1.0-10.0) Eosinophils (%) (Auto) 2.8 % (0.0-3.0) Basophils (%) (Auto) 1.6 % (0.0-2.0) Sodium Level 139 MMOL/L (136-145) Potassium Level 4.0 MMOL/L (3.5-5.1) Chloride Level 105 MMOL/L (98-107) Carbon Dioxide Level 30 MMOL/L (21-32) Anion Gap 4 mmol/L (5-15) L Blood Urea Nitrogen 14 mg/dL (7-18) Creatinine 1.0 MG/DL (0.55-1.30) Estimat Glomerular Filtration Rate > 60 mL/min (>60) Glucose Level 78 MG/DL (74-106) Calcium Level 8.8 MG/DL (8.5-10.1) Phosphorus Level 4.3 MG/DL (2.5-4.9) Magnesium Level 2.0 MG/DL (1.8-2.4) Total Bilirubin 0.4 MG/DL (0.2-1.0) Aspartate Amino Transf (AST/SGOT) 22 U/L (15-37) Alanine Aminotransferase (ALT/SGPT) 30 U/L (12-78) Alkaline Phosphatase 108 U/L (46-116) Troponin I 0.009 ng/mL (0.000-0.056) Pro-B-Type Natriuretic Peptide 955 pg/mL (0-125) H Total Protein 6.7 G/DL (6.4-8.2) Albumin 3.1 G/DL (3.4-5.0) L Globulin 3.6 g/dL Albumin/Globulin Ratio 0.9 (1.0-2.7) L Thyroid Stimulating Hormone (TSH) 1.451 uiU/mL (0.360-3.740) Free Thyroxine 0.94 NG/DL (0.10-1.46) Objective HEAD AND NECK: Shows no JVD. LUNGS: Clear. CARDIOVASCULAR: Shows regular S1 and S2. Defibrillator in left subclavian. ABDOMEN: Soft. EXTREMITIES: Have 1+ pitting edema. WALDEMAR RAY Jun 13, 2017 16:53
[2017-06-13] MEDS: Xarelto 10mg tab ORAL SCH (17:35)
--- NOTE | 2017-06-13 18:06 | Internal Med Progress Note ---
Subjective Date of Service: Jun 13, 2017 Physician Name Kristal Pope Attending Physician Saurav Morrison MD Current Medications Medications (Trade) Dose Ordered Sig/Megan Route PRN Reason Start Time Stop Time Status Last Admin Dose Admin Acetaminophen/ Hydrocodone Bitart ([place] 5/325) 1 tab Q6H PRN ORAL For Pain 06/12/17 15:15 06/19/17 15:14 06/13/17 13:24 Aripiprazole (Abilify) 30 mg QHS ORAL 06/12/17 21:00 07/12/17 20:59 Budesonide/ Formoterol Fumarate (Symbicort 160/ 4.5) 1 puff TWICE A DAY INH 06/12/17 18:00 07/12/17 17:59 06/13/17 09:05 Carvedilol (Coreg) 3.125 mg EVERY 12 HOURS ORAL 06/12/17 21:00 07/12/17 20:59 06/13/17 09:50 Cyclobenzaprine HCl (Flexeril) 10 mg TIDPRN PRN ORAL Muscle Spasm 06/12/17 14:45 07/12/17 14:44 Digoxin (Lanoxin) 0.25 mg DAILY ORAL 06/13/17 09:00 07/13/17 08:59 06/13/17 09:50 Divalproex Sodium (Depakote) 1,000 mg QHS ORAL 06/12/17 21:00 07/12/17 20:59 06/12/17 22:53 Escitalopram Oxalate (Lexapro) 10 mg DAILY ORAL 06/13/17 09:00 07/13/17 08:59 06/13/17 09:50 Furosemide (Lasix) 40 mg BID IV 06/12/17 18:00 07/12/17 17:59 06/13/17 17:35 Lisinopril (Zestril) 5 mg DAILY ORAL 06/13/17 09:00 07/13/17 08:59 06/13/17 09:52 Lorazepam (Ativan) 1 mg QHS ORAL 06/12/17 21:00 06/19/17 20:59 06/12/17 22:53 Nitroglycerin (Ntg) 0.4 mg Q5MIN X 3 DOSES PRN SL Prn Chest Pain 06/12/17 14:45 07/12/17 14:44 Ondansetron HCl (Zofran) 4 mg Q4H PRN IVP Nausea & Vomiting 06/13/17 08:45 07/13/17 08:44 Pregabalin (Lyrica) 100 mg DAILY ORAL 06/13/17 09:00 07/13/17 08:59 06/13/17 09:51 Rivaroxaban (Xarelto) 20 mg QPM ORAL 06/12/17 16:30 07/12/17 16:29 06/13/17 17:35 Spironolactone (Aldactone) 25 mg DAILY ORAL 06/13/17 09:00 07/13/17 08:59 06/13/17 09:53 Temazepam (Restoril) 15 mg HSPRN PRN ORAL Insomnia 06/12/17 14:45 06/19/17 14:44 06/12/17 23:48 Allergies: Coded Allergies: AMOXICILLIN (Verified Allergy, Mild, SWELLING, 04/11/10) EGG (Verified Allergy, Mild, RASH, 06/08/10) PENICILLINS (Verified Allergy, Mild, RASH, 04/11/10) ROS Limited/Unobtainable: No Constitutional: Reports: no symptoms HEENT: Reports: no symptoms Cardiovascular: Reports: chest pain Respiratory: Reports: no symptoms Gastrointestinal/Abdominal: Reports: no symptoms Genitourinary: Reports: no symptoms Neurologic/Psychiatric: Reports: no symptoms Subjective 46 YO F admitted with chest pain. Cover for Int Valentin-Dr Morrison Objective Last Vital Signs Date Time Temp Pulse Resp B/P (MAP) Pulse Ox O2 Delivery O2 Flow Rate FiO2 06/13/17 16:20 98.1 61 18 109/65 98 Room Air 06/13/17 09:08 21 General Appearance: WD/WN, no apparent distress, alert EENT: PERRL/EOMI, normal ENT inspection, TMs normal Neck: non-tender, normal alignment, supple, normal inspection Cardiovascular: normal peripheral pulses, no gallop/murmur, no JVD, irregularly irregular Respiratory/Chest: chest wall non-tender, lungs clear, normal breath sounds, no respiratory distress, no accessory muscle use Abdomen: normal bowel sounds, non tender, soft, no organomegaly, no mass Extremities: normal range of motion 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, no motor/sensory deficits Skin: normal pigmentation Laboratory Tests Test 06/13/17 08:55 White Blood Count 5.9 K/UL (4.8-10.8) Red Blood Count 4.88 M/UL (4.20-5.40) Hemoglobin 14.1 G/DL (12.0-16.0) Hematocrit 44.8 % (37.0-47.0) Mean Corpuscular Volume 92 FL (80-99) Mean Corpuscular Hemoglobin 28.8 PG (27.0-31.0) Mean Corpuscular Hemoglobin Concent 31.4 G/DL (32.0-36.0) L Red Cell Distribution Width 12.7 % (11.6-14.8) Platelet Count 202 K/UL (150-450) Mean Platelet Volume 8.8 FL (6.5-10.1) Neutrophils (%) (Auto) 54.4 % (45.0-75.0) Lymphocytes (%) (Auto) 36.5 % (20.0-45.0) Monocytes (%) (Auto) 4.7 % (1.0-10.0) Eosinophils (%) (Auto) 2.8 % (0.0-3.0) Basophils (%) (Auto) 1.6 % (0.0-2.0) Sodium Level 139 MMOL/L (136-145) Potassium Level 4.0 MMOL/L (3.5-5.1) Chloride Level 105 MMOL/L (98-107) Carbon Dioxide Level 30 MMOL/L (21-32) Anion Gap 4 mmol/L (5-15) L Blood Urea Nitrogen 14 mg/dL (7-18) Creatinine 1.0 MG/DL (0.55-1.30) Estimat Glomerular Filtration Rate > 60 mL/min (>60) Glucose Level 78 MG/DL (74-106) Calcium Level 8.8 MG/DL (8.5-10.1) Phosphorus Level 4.3 MG/DL (2.5-4.9) Magnesium Level 2.0 MG/DL (1.8-2.4) Total Bilirubin 0.4 MG/DL (0.2-1.0) Aspartate Amino Transf (AST/SGOT) 22 U/L (15-37) Alanine Aminotransferase (ALT/SGPT) 30 U/L (12-78) Alkaline Phosphatase 108 U/L (46-116) Troponin I 0.009 ng/mL (0.000-0.056) Pro-B-Type Natriuretic Peptide 955 pg/mL (0-125) H Total Protein 6.7 G/DL (6.4-8.2) Albumin 3.1 G/DL (3.4-5.0) L Globulin 3.6 g/dL Albumin/Globulin Ratio 0.9 (1.0-2.7) L Thyroid Stimulating Hormone (TSH) 1.451 uiU/mL (0.360-3.740) Free Thyroxine 0.94 NG/DL (0.10-1.46) Intake and Output 06/13/17 06/14/17 19:00 07:00 Intake Total 360 ml Balance 360 ml Intake Oral 360 ml # Voids 3 Assessment/Plan Problem List: (1) Chest Pain Assessment & Plan: ?secondary to cocaine abuse? See cardiology note. (2) Cocaine abuse (3) AICD (automatic cardioverter/defibrillator) present (4) SOB (shortness of breath) (5) CHF (congestive heart failure) Assessment & Plan: LVEF = 15-20%. See cardiology note. Continue lasix and coreg. (6) Atrial fibrillation Assessment & Plan: Continue digoxin and xarelto per cardiology (7) Cardiomyopathy (8) Hypertension (9) Hypothyroidism (10) Bipolar disorder Assessment & Plan: Continue depakote. Status: KRISTAL Woodall Jun 13, 2017 18:06
[2017-06-13 20:00] VITALS: BP 103/57
[2017-06-13] MEDS: Depakote 500mg tab ORAL SCH (21:06)
[2017-06-13] MEDS: LORazepam 1mg tab ORAL SCH (21:06)
[2017-06-14] VITALS: BP 105/40
[2017-06-14 04:00] VITALS: BP 98/65
[2017-06-14] MEDS: Norco 5mg/325mg tab ORAL PRN ×2 (05:56→13:55)
[2017-06-14 08:00] VITALS: BP 102/51
[2017-06-14 08:29] LABS: BASOPHILS % (AUTO) 1.1 % (0.0-2.0); EOSINOPHILS % (AUTO) 3.4 % (0.0-3.0); LYMPHOCYTES % (AUTO) 40.2 % (20.0-45.0); MEAN CORPUSCULAR HEMOGLOBIN 29.6 PG (27.0-31.0); MEAN CORPUSCULAR HGB CONC 32.8 G/DL (32.0-36.0); MEAN CORPUSCULAR VOLUME 90 FL (80-99); MEAN PLATELET VOLUME 8.7 FL (6.5-10.1); MONOCYTES % (AUTO) 2.9 % (1.0-10.0); NEUTROPHILS % (AUTO) 52.4 % (45.0-75.0); PLATELET COUNT 236 K/UL (150-450); RED BLOOD COUNT 4.75 M/UL (4.20-5.40); RED CELL DISTRIBUTION WIDTH 12.1 % (11.6-14.8); WHITE BLOOD COUNT 5.9 K/UL (4.8-10.8)
--- NOTE | 2017-06-14 08:48 | Cardiology Report ---
APPROVED REPORT EKG Measurement Heart [id number] Sinus rhythm Ventricular paced rhythm Occ fused complexes
[2017-06-14] MEDS: Lisinopril 10mg tab ORAL SCH (09:00)
[2017-06-14 09:09] LABS: ANION GAP 10 mmol/L (5-15); CALCIUM 9.3 MG/DL (8.5-10.1); CARBON DIOXIDE 29 MMOL/L (21-32); CHLORIDE 102 MMOL/L (98-107); CREATININE 1.1 MG/DL (0.55-1.30); GLOMERULAR FILTRATION RATE > 60 mL/min (>60); POTASSIUM 4.2 MMOL/L (3.5-5.1); SODIUM 141 MMOL/L (136-145)
[2017-06-14] MEDS: Lyrica 50mg cap ORAL SCH (09:22)
[2017-06-14] MEDS: Spironolactone 25mg tab ORAL SCH (09:23)
[2017-06-14 12:00] VITALS: BP 101/62
[2017-06-14] MEDS ORDERED: 1/2 NS 1000ml IV ONE (14:16)
--- NOTE | 2017-06-14 15:09 | Cardiac Electrophysiology PN ---
Assessment/Plan Assessment/Plan 1. Chest pain. Could be due to cocaine use.Strong abstinence is recommended. 2. Exacerbation of CHF and EF 25%. BNP is in the 1000 range. On Lasix 40 mg IV twice a day, dig and Coreg 3. Status post [employer] defibrillator implantation with generator changed by me in November 2015. 4. 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 5. Status post atrial flutter ablation by me in 2012. 6. Status post atrial tachycardia ablation by me in 2014. 7. Status post new atrial lead placement in February 2015 for atrial lead fracture. 8. DVT and pulmonary embolism. On Xarelto 20 daily 9. Substance use with cocaine and cannabinoids. Abstinence was recommended. ROBERTO RN Subjective Subjective Comfortable in NAD. V pacing on tele. Objective Last 24 Hour Vital Signs Date Time Temp Pulse Resp B/P (MAP) Pulse Ox O2 Delivery O2 Flow Rate FiO2 06/14/17 14:54 97.5 06/14/17 12:00 97.5 56 20 101/62 99 Room Air 06/14/17 11:34 66 06/14/17 09:24 58 102/51 06/14/17 09:23 58 06/14/17 09:00 102/51 06/14/17 08:00 98.1 58 20 102/51 99 Room Air 06/14/17 07:36 48 16 98 Room Air 06/14/17 07:35 48 16 98 Room Air 06/14/17 07:30 69 06/14/17 04:00 67 06/14/17 04:00 97.4 70 18 98/65 95 Room Air 06/14/17 00:00 97.4 42 18 105/40 96 Room Air 06/14/17 00:00 67 06/13/17 21:06 70 130/78 06/13/17 20:00 68 06/13/17 20:00 98.1 69 18 103/57 98 Room Air 06/13/17 19:35 60 18 98 Room Air 06/13/17 19:30 58 18 98 Room Air 21 06/13/17 16:20 98.1 61 18 109/65 98 Room Air 06/13/17 16:00 59 Laboratory Tests Test 06/14/17 07:50 White Blood Count 5.9 K/UL (4.8-10.8) Red Blood Count 4.75 M/UL (4.20-5.40) Hemoglobin 14.0 G/DL (12.0-16.0) Hematocrit 42.8 % (37.0-47.0) Mean Corpuscular Volume 90 FL (80-99) Mean Corpuscular Hemoglobin 29.6 PG (27.0-31.0) Mean Corpuscular Hemoglobin Concent 32.8 G/DL (32.0-36.0) Red Cell Distribution Width 12.1 % (11.6-14.8) Platelet Count 236 K/UL (150-450) Mean Platelet Volume 8.7 FL (6.5-10.1) Neutrophils (%) (Auto) 52.4 % (45.0-75.0) Lymphocytes (%) (Auto) 40.2 % (20.0-45.0) Monocytes (%) (Auto) 2.9 % (1.0-10.0) Eosinophils (%) (Auto) 3.4 % (0.0-3.0) H Basophils (%) (Auto) 1.1 % (0.0-2.0) Sodium Level 141 MMOL/L (136-145) Potassium Level 4.2 MMOL/L (3.5-5.1) Chloride Level 102 MMOL/L (98-107) Carbon Dioxide Level 29 MMOL/L (21-32) Anion Gap 10 mmol/L (5-15) Blood Urea Nitrogen 22 mg/dL (7-18) H Creatinine 1.1 MG/DL (0.55-1.30) Estimat Glomerular Filtration Rate > 60 mL/min (>60) Glucose Level 137 MG/DL (74-106) H Calcium Level 9.3 MG/DL (8.5-10.1) Troponin I 0.009 ng/mL (0.000-0.056) Objective HEAD AND NECK: Shows no JVD. LUNGS: Clear. CARDIOVASCULAR: Regular S1 and S2 with 2/6 HSM. Defibrillator in left subclavian. ABDOMEN: Soft. EXTREMITIES: 1+ pitting edema. WALDEMAR RAY Jun 14, 2017 15:09
[2017-06-14 16:00] VITALS: BP 103/52
--- NOTE | 2017-06-14 16:49 | Internal Med Progress Note ---
Subjective Date of Service: Jun 14, 2017 Physician Name Aron Wei Attending Physician Saurav Morrison MD Current Medications Medications (Trade) Dose Ordered Sig/Megan Route PRN Reason Start Time Stop Time Status Last Admin Dose Admin Acetaminophen/ Hydrocodone Bitart ([place] 5/325) 1 tab Q6H PRN ORAL For Pain 06/12/17 15:15 06/19/17 15:14 06/14/17 13:55 Aripiprazole (Abilify) 30 mg QHS ORAL 06/12/17 21:00 07/12/17 20:59 Budesonide/ Formoterol Fumarate (Symbicort 160/ 4.5) 1 puff TWICE A DAY INH 06/12/17 18:00 07/12/17 17:59 06/14/17 07:25 Carvedilol (Coreg) 3.125 mg EVERY 12 HOURS ORAL 06/12/17 21:00 07/12/17 20:59 06/14/17 09:24 Cyclobenzaprine HCl (Flexeril) 10 mg TIDPRN PRN ORAL Muscle Spasm 06/12/17 14:45 07/12/17 14:44 Digoxin (Lanoxin) 0.25 mg DAILY ORAL 06/13/17 09:00 07/13/17 08:59 06/14/17 09:23 Divalproex Sodium (Depakote) 1,000 mg QHS ORAL 06/12/17 21:00 07/12/17 20:59 06/13/17 21:06 Escitalopram Oxalate (Lexapro) 10 mg DAILY ORAL 06/13/17 09:00 07/13/17 08:59 06/14/17 09:24 Furosemide (Lasix) 40 mg BID IV 06/12/17 18:00 07/12/17 17:59 06/14/17 09:21 Lisinopril (Zestril) 5 mg DAILY ORAL 06/13/17 09:00 07/13/17 08:59 06/13/17 09:52 Lorazepam (Ativan) 1 mg QHS ORAL 06/12/17 21:00 06/19/17 20:59 06/13/17 21:06 Nitroglycerin (Ntg) 0.4 mg Q5MIN X 3 DOSES PRN SL Prn Chest Pain 06/12/17 14:45 07/12/17 14:44 Ondansetron HCl (Zofran) 4 mg Q4H PRN IVP Nausea & Vomiting 06/13/17 08:45 07/13/17 08:44 06/14/17 06:35 Pregabalin (Lyrica) 100 mg DAILY ORAL 06/13/17 09:00 07/13/17 08:59 06/14/17 09:22 Rivaroxaban (Xarelto) 20 mg QPM ORAL 06/12/17 16:30 07/12/17 16:29 06/13/17 17:35 Spironolactone (Aldactone) 25 mg DAILY ORAL 06/13/17 09:00 07/13/17 08:59 06/14/17 09:23 Temazepam (Restoril) 15 mg HSPRN PRN ORAL Insomnia 06/12/17 14:45 06/19/17 14:44 06/13/17 21:05 Allergies: Coded Allergies: AMOXICILLIN (Verified Allergy, Mild, SWELLING, 04/11/10) EGG (Verified Allergy, Mild, RASH, 06/08/10) PENICILLINS (Verified Allergy, Mild, RASH, 04/11/10) ROS Limited/Unobtainable: No Constitutional: Reports: no symptoms HEENT: Reports: no symptoms Cardiovascular: Reports: no symptoms Respiratory: Reports: no symptoms Gastrointestinal/Abdominal: Reports: no symptoms Genitourinary: Reports: no symptoms Neurologic/Psychiatric: Reports: no symptoms Subjective 46 YO F admitted with chest pain. Cover for Int Med-Dr Morrison. Await discharge home Objective Last Vital Signs Date Time Temp Pulse Resp B/P (MAP) Pulse Ox O2 Delivery O2 Flow Rate FiO2 06/14/17 16:10 55 06/14/17 14:54 97.5 06/14/17 12:00 20 101/62 99 Room Air 06/14/17 07:36 21 Laboratory Tests Test 06/14/17 07:50 White Blood Count 5.9 K/UL (4.8-10.8) Red Blood Count 4.75 M/UL (4.20-5.40) Hemoglobin 14.0 G/DL (12.0-16.0) Hematocrit 42.8 % (37.0-47.0) Mean Corpuscular Volume 90 FL (80-99) Mean Corpuscular Hemoglobin 29.6 PG (27.0-31.0) Mean Corpuscular Hemoglobin Concent 32.8 G/DL (32.0-36.0) Red Cell Distribution Width 12.1 % (11.6-14.8) Platelet Count 236 K/UL (150-450) Mean Platelet Volume 8.7 FL (6.5-10.1) Neutrophils (%) (Auto) 52.4 % (45.0-75.0) Lymphocytes (%) (Auto) 40.2 % (20.0-45.0) Monocytes (%) (Auto) 2.9 % (1.0-10.0) Eosinophils (%) (Auto) 3.4 % (0.0-3.0) H Basophils (%) (Auto) 1.1 % (0.0-2.0) Sodium Level 141 MMOL/L (136-145) Potassium Level 4.2 MMOL/L (3.5-5.1) Chloride Level 102 MMOL/L (98-107) Carbon Dioxide Level 29 MMOL/L (21-32) Anion Gap 10 mmol/L (5-15) Blood Urea Nitrogen 22 mg/dL (7-18) H Creatinine 1.1 MG/DL (0.55-1.30) Estimat Glomerular Filtration Rate > 60 mL/min (>60) Glucose Level 137 MG/DL (74-106) H Calcium Level 9.3 MG/DL (8.5-10.1) Troponin I 0.009 ng/mL (0.000-0.056) Objective General Appearance: WD/WN, no apparent distress, alert EENT: PERRL/EOMI, normal ENT inspection, TMs normal Neck: non-tender, normal alignment, supple, normal inspection Cardiovascular: normal peripheral pulses, no gallop/murmur, no JVD, irregularly irregular Respiratory/Chest: chest wall non-tender, lungs clear, normal breath sounds, no respiratory distress, no accessory muscle use Abdomen: normal bowel sounds, non tender, soft, no organomegaly, no mass Extremities: normal range of motion 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 See cardiology note. (2) Cocaine abuse (3) AICD (automatic cardioverter/defibrillator) present (4) SOB (shortness of breath) (5) CHF (congestive heart failure) Assessment & Plan: LVEF = 15-20%. See cardiology note. Continue lasix and coreg. (6) Atrial fibrillation Assessment & Plan: Continue digoxin and xarelto per cardiology (7) Cardiomyopathy (8) Hypertension (9) Hypothyroidism (10) Bipolar disorder Assessment & Plan: Continue depakote. Status: stable ARON WEI Jun 14, 2017 16:49
[2017-06-14] MEDS: Xarelto 10mg tab ORAL SCH (17:07)
[2017-06-14] MEDS ORDERED: Tubing IV Secondary IV ONE (18:42)
--- NOTE | 2017-06-16 13:50 | Discharge Summary ---
Discharge Summary Hospital Course Date of Admission Jun 12, 2017 at 10:55 Date of Discharge Jun 14, 2017 at 18:43 Admitting Diagnosis chest pain HPI Kim Judd is a 46 year old female who was admitted on Jun 12, 2017 at 10: 55 for Chest Pain Hospital Course [id number] Discharge Discharge Disposition Patient was discharged to Home (01) Discharge Diagnoses: Leena Burgess NP Jun 16, 2017 13:50
--- NOTE | 2017-06-16 23:46 | Discharge Summary 2 SIG ---
DATE OF ADMISSION: 06/12/2017 DATE OF DISCHARGE: 06/14/2017 CONSULTANTS: Ulysses Page M.D. BRIEF HOSPITAL COURSE: The patient is a 46-year-old female, who presented with chief complaint of chest pain that started four days prior to admission. She experienced left-sided chest pain, took Tylenol without relief. She has history of congestive heart failure with AICD placement. She presented to ED and on evaluation, EKG was without acute injury, mostly paced. Chest x-ray showed pulmonary hypertension. Troponin was negative. Urine toxicology panel was positive for marijuana and cocaine. She was admitted to telemetry for acute chest pain to rule out acute coronary syndrome. She was continued on Xarelto for atrial fibrillation and was followed by Dr. Page. The patient has ejection fraction of 20% to 25%. She was given Lasix and digoxin and was continued on Coreg. She was strongly advised against the use of cocaine. She was eventually discharged home. FINAL DIAGNOSES: 1. Chest pain, possibly secondary to cocaine abuse. 2. Acute on chronic systolic and diastolic congestive heart failure. 3. Automatic implanted cardioverter defibrillator. 4. Atrial fibrillation. 5. Cardiomyopathy. 6. Hypothyroidism. 7. Bipolar disorder. DISCHARGE DISPOSITION: The patient was discharged home. DISCHARGE MEDICATIONS: Refer to medication list. FOLLOWUP: Follow up with Dr. Morrison in a week. Aron Pope M.D. I have been assigned to dictate discharge summary on this account and I was not involved in the patient's management. Leena Burgess N.P. DR: [email or web address] JOB#: [id number] CC:
== END 2017-06-14 18:43 | disposition home or self-care (01) | DRG 292 ==
LOC: EMR 08:48 → 2E 10:55 → EDBEDREQ 12:24
DX: I50.43 Acute on chronic combined systolic (congestive) and diastolic (congestive) heart failure (principal); I42.9 Cardiomyopathy, unspecified; I27.20 Pulmonary hypertension, unspecified; Z79.01 Long term (current) use of anticoagulants; F14.10 Cocaine abuse, uncomplicated; I48.91 Unspecified atrial fibrillation; E03.9 Hypothyroidism, unspecified; Z95.810 Presence of automatic (implantable) cardiac defibrillator; R07.89 Other chest pain; F31.9 Bipolar disorder, unspecified; F41.9 Anxiety disorder, unspecified; Z88.0 Allergy status to penicillin; F17.200 Nicotine dependence, unspecified, uncomplicated; F12.90 Cannabis use, unspecified, uncomplicated; Z86.711 Personal history of pulmonary embolism; Z86.718 Personal history of other venous thrombosis and embolism
CPT/HCPCS: 36415; 71010; 80048; 80053; 80307; 81003; 82550; 83735; 83880; 84100; 84439; 84443; 84484; 85025; 85610; 85730; 93005; 93306; 94640; 94664; 99285; J2405